=== PATIENT | female | born 1965 | race African-American/Black ===

== ENCOUNTER 2016-06-04 19:52 | Emergency (ER) | payer MEDICAID, SELFPAY ==
[2016-06-04] MEDS ORDERED: HYDROcodone/Acetaminophen 10/325 mg Tablet ONE (20:11)
[2016-06-04] MEDS ORDERED: Lidocaine Viscous Sol 2% 15 ml UD Cup ONE (20:12)
[2016-06-04] MEDS ORDERED: Ibuprofen 800 MG TAB ONE (20:12)
[2016-06-04] MEDS ORDERED: Clindamycin 150 MG CAP ONE (20:12)
--- NOTE | 2016-06-04 20:38 | ERRECORD ---
[facility] EMERGENCY RECORD HPI TOOTHACHE (20:16 ABUS) CHIEF COMPLAINT: Patient presents for evaluation of toothache. HISTORIAN: History provided by patient, 50 yr old with PMH of DM and HF who come sin with reports of left lower molar pain x 1 day. No F, N/V, rash. No broken tooth. LOCATION: Symptoms are localized, most severe to Tooth #38. QUALITY: Pain is dull in nature, described as aching. SEVERITY: Currently symptoms are severe, Current severity of pain rated as 10/10. TIME COURSE: Gradual onset of symptoms, 1, days priror to arrival, There has been no change in the patient's symptoms over time, are constant. ASSOCIATED WITH: No associated symptoms. EXACERBATED BY: Patient's condition exacerbated by nothing. RELIEVED BY: Patient's condition relieved by nothing. ROS (20:17 ABUS) CONSTITUTIONAL: Negative constitutional review of systems, Historian denies chills, denies fever. ENT: Tooth pain. CARDIOVASCULAR: Negative cardiovascular review of systems, Historian denies chest pain, denies palpitations. RESPIRATORY: Negative respiratory review of systems, Historian denies cough, denies shortness of breath. GI: Negative gastrointestinal review of systems, Historian denies abdominal pain, denies constipation, denies diarrhea, denies nausea, denies vomiting. GENITOURINARY FEMALE: Negative genitourinary review of systems, Historian denies dysuria, denies frequency. SKIN: Negative skin review of systems, Historian denies rash, denies skin changes. NEUROLOGIC: Negative neurologic review of systems, Historian denies headache. HEMO/LYMPHATIC: Normal hematologic/lymphatic system review, Historian denies abnormal blood clotting. PAST MEDICAL HISTORY (SatJun 04, 2016 20:00 MDEB) MEDICAL HISTORY: Flu vaccine not up to date, Tetanus not up to date, Pneumococcal vaccine not up to date, diabetes, history of hypertension, IBD.VERIFIED 05/09/14...chronic back pain. FEMALE SURGICAL HISTORY: tubal ligation, Date of surgery 1987. VERIFIED 05/09/14. verified 09/01/14. PSYCHIATRIC HISTORY: DEPRESSION, BIPOLAR DISORDER, ANXIETY. VERIFIED 05/09/14.verified 09/01/14. SOCIAL HISTORY: Patient denies alcohol use, Patient denies drug use, Patient has no smoking history, Patient denies alcohol use, Patient denies drug use, Patient currently uses tobacco, smokes cigarettes, Occasional or some day smoker, Patient denies alcohol use, Patient denies drug use,. &a-1R&a+25V*p+0X*s2124P*c202B*c15G*c2P*p-0X&a-25V&a+1R Name: Dulce Maria Patel : 1965 F50 MedRec: [id number] AcctNum: [id number] Prepared: SatJun 04, 2016 20:30 by Interface Page 1 of 3 pMD [facility] EMERGENCY RECORD KNOWN ALLERGIES No Known Allergies (Unconfirmed) No Known Drug Allergies CURRENT MEDICATIONS No recorded medications VITAL SIGNS (19:58 MDEB) VITAL SIGNS: BP: 117/62, Pulse: 99, Resp: 20, Temp: 98.4 (Tympanic), Pain: 10, O2 sat: 99 on Room Air, Time: 06/04/2016 19:58. PHYSICAL EXAM (20:17 ABUS) CONSTITUTIONAL: Vital signs reviewed, Patient afebrile, Pulse normal, Blood pressure normal, Respiratory rate normal, Patient appears non toxic, Patient appears pain free, Patient alert and oriented to person, place and time. ENT: Ear exam normal, external ear normal, tympanic membranes normal, Nose exam normal, no nasal deformity, no bleeding from nares, Pharynx exam normal, not injected, no swelling, symmetrical, Uvula exam normal, midline, no edema, Tonsil exam normal, not enlarged, no exudates, Mouth exam normal, mucous membranes moist, Teeth with, dental caries, fractures, tooth #38. NECK: Neck exam normal, Neck exam included findings of normal range of motion, Trachea midline, no meningeal signs, no cervical adenopathy, no tenderness. RESPIRATORY CHEST: Respiratory and chest exam normal, Respiratory exam included findings of no respiratory distress, Breath sounds clear. CARDIOVASCULAR: Cardiovascular assessment normal, Cardiovascular exam included findings of heart rate regular rate and rhythm, Heart sounds normal. ABDOMEN FEMALE: Abdominal exam included findings of abdomen nontender, Bowel sounds normal, no distension, no mass, no pulsatile masses, no peritoneal signs, no rigidity, no guarding, no rebound, Rovsing's sign absent. BACK: Back exam normal, Back exam included findings of normal inspection, range of motion normal, no tenderness. NEURO: Neuro exam normal, Neuro exam findings include patient oriented to person, place and time, Speech normal, Gait normal. SKIN: Skin exam normal, Skin exam included findings of skin warm, dry, and normal in color, no rash. MEDICATION ADMINISTRATION SUMMARY Drug Name: ibuprofen, Dose Ordered: 800 mg, Route: Oral, Status: Given, Time: 20:20 06/04/2016, Drug Name: Lidocaine Viscous, Dose Ordered: 15 mL, Route: Oral, Status: Given, Time: 20:20 06/04/2016, &a-1R&a+25V*p+0X*f0692Q*c202B*c15G*c2P*p-0X&a-25V&a+1R Name: Dulce Maria Patel : 1965 F50 MedRec: [id number] AcctNum: [id number] Prepared: SatJun 04, 2016 20:30 by Interface Page 2 of 3 pMD [facility] EMERGENCY RECORD Drug Name: HYDROcodone-acetaminophen, Dose Ordered: 10/325 tab(s), Route: Oral, Status: Given, Time: 20:19 06/04/2016, Drug Name: clindamycin HCl, Dose Ordered: 300 mg, Route: Oral, Status: Given, Time: 20:15 06/04/2016, Detailed record available in Medication Service section. DOCTOR NOTES (20:18 ABUS) TEXT: 50 yr old with PMH of DM and HF who come sin with reports of left lower molar pain x 1 day. No F, N/V, rash. No broken tooth. EXAM: Tooth #38 has dental cavity with swlling but no fluctuance or purulent drainage. Dx: Dental cavity, gingivitis Plan: Analgesia, clinda, return precautions, dental referral. PROBLEM LIST No recorded problems DIAGNOSIS (20:15 ABUS) FINAL: PRIMARY: Toothache. PRESCRIPTION (20:15 ABUS) Peridex: MOUTHWASH : 0.12 % : MUCOUS MEMBRANE : Quantity: 15 Unit: mL Route: MUCOUS MEMBRANE Schedule: 2 times a day Dispense: 1 May substitute. Refills: No Refills . NOTES: No Refills. acetaminophen-codeine: TABLET : 300 mg-30 mg : ORAL : Quantity: 1 Unit: tab(s) Route: ORAL Schedule: every 6 hours PRN Dispense: 16 Unit: tab(s) May substitute. Refills: No Refills . NOTES: ^s=No Refills No Refills. clindamycin HCl: CAPSULE : 300 mg : ORAL : Quantity: 1 Unit: cap(s) Route: ORAL Schedule: 3 times a day Dispense: 21 Unit: cap(s) May substitute. Refills: No Refills . NOTES: ^s=^s=No Refills No Refills No Refills. DISPOSITION PATIENT: Disposition Type: Discharge, Disposition: *Discharge Home, Condition: Good. (20:15 ABUS) Patient left the department. (20:27 ESTEFANY) Gordon: AB=MD Rohit, Nicola HAWKINSEB=LINDA Quintanilla, Teressa &a-1R&a+25V*p+0X*[id number]*c202B*c15G*c2P*p-0X&a-25V&a+1R Name: Dulce Maria Patel : 1965 F50 MedRec: [id number] AcctNum: [id number] Prepared: SatJun 04, 2016 20:30 by Interface Page 3 of 3 pMD MTDD
--- NOTE | 2016-06-04 20:41 | PICIS ---
[facility] EMERGENCY RECORD TRIAGE (SatJun 04, 2016 20:00 MDEB) PATIENT: NAME: Dulce Maria Patel, AGE: 50, GENDER: female, : Sat1965, TIME OF GREET: SatJun 04, 2016 19:52, PREFERRED LANGUAGE: Belarusian, RACE: Black or , ETHNICITY: Not or , FALL RISK: NO, ECODE BILLING MAP: [facility], SSN: [id number], Zip Code: [address], KG WEIGHT: 91.63, PHONE: CELL, , , PERSON ID: [id number], PCP: MD Quiñonez Olayemi. (SatJun 04, 2016 20:00 MDEB) TRIAGE NOTES: DENTAL PAIN SINCE 18:00 TONIGHT. L UPPER ET L LOWER MOLARS. L EAR ALSO PAINFUL. (SatJun 04, 2016 20:00 MDEB) COMPLAINT: TOOTH ACHE. (SatJun 04, 2016 20:00 MDEB) ADMISSION: URGENCY: 4 Non Urgent, ADMISSION SOURCE: Home, TRANSPORT: Walk-in, BED: TRIAGE. (SatJun 04, 2016 20:00 MDEB) PAIN: Patient complains of pain described as, aching, on a scale 0-10 patient rates pain as 10. (SatJun 04, 2016 20:00 MDEB) IMMUNIZATIONS: Tetanus immunization up to date. (SatJun 04, 2016 20:00 MDEB) TRIAGE SCREENING: Patient denies suicidal ideation, Patient denies presence of domestic violence. (SatJun 04, 2016 20:00 MDEB) LMP: LMP: Menopause. (SatJun 04, 2016 20:00 MDEB) PROVIDERS: TRIAGE NURSE: Teressa Quintanilla RN. (SatJun 04, 2016 20:00 MDEB) VITAL SIGNS: BP 117/62, Pulse 99, Resp 20, Temp 98.4, (Tympanic), Pain 10, O2 Sat 99, on Room Air, Time 06/04/2016 19:58. (19:58 MDEB) KNOWN ALLERGIES No Known Allergies (Unconfirmed) No Known Drug Allergies CURRENT MEDICATIONS No recorded medications VITAL SIGNS (19:58 MDEB) VITAL SIGNS: BP: 117/62, Pulse: 99, Resp: 20, Temp: 98.4 (Tympanic), Pain: 10, O2 sat: 99 on Room Air, Time: 06/04/2016 19:58. NURSING ASSESSMENT: DENTAL (20:00 MDEB) CONSTITUTIONAL: Patient arrives ambulatory, Gait steady, History obtained from patient, Patient appears, anxious, in distress due to pain, uncomfortable, Patient cooperative, Patient alert, Oriented to person, place and time, Skin warm, Skin dry, Skin normal in color, Mucous membranes pink, Mucous membranes moist, Patient is well-groomed, Patient complains of UPPER ET LOWER L SIDE MOLAR PAIN. PAIN: aching pain, on a scale 0-10 patient rates pain as 10, Pain exacerbated by nothing, Nothing has been tried to alleviate the pain. DENTAL: Dental assessment findings include mouth normal, &a-1R&a+25V*p+0X*r5753J*c202B*c15G*c2P*p-0X&a-25V&a+1R Name: Dulce Maria Patel : 1965 F50 MedRec: [id number] AcctNum: [id number] Prepared: SatJun 04, 2016 20:30 by Interface Page 1 of 6 pMD [facility] EMERGENCY RECORD Teeth abnormal:, broken secondary tooth (teeth), signs of infection to secondary tooth (teeth), color change to secondary tooth (teeth), missing secondary tooth (teeth), Associated with, GUMS SWOLLEN TO L UPPER MOLAR. SAFETY: Side rails up, Cart/Stretcher in lowest position, Family at bedside, Call light within reach, Hospital ID band on. NURSING PROCEDURE: DISCHARGE NOTE (20:25 MDEB) DISCHARGE: Patient discharged to home, ambulating without assistance, friend driving, accompanied by friend, Summary of Care printed/ provided, Patient requested and was provided an electronic copy of Discharge Instructions, Transition record given to patient, Discharge instructions given to patient, Simple or moderate discharge teaching performed, PAIN CONTROL/MEDICATIONS, Prescriptions given and instructions on side effects given, Above person(s) verbalized understanding of discharge instructions and follow-up care. BELONGINGS: Belongings remain with patient, Valuables remain with patient. NOTES: Emotional support needed and given, Patient tolerated procedure well. MEDICATION ADMINISTRATION SUMMARY Drug Name: ibuprofen, Dose Ordered: 800 mg, Route: Oral, Status: Given, Time: 20:20 06/04/2016, Drug Name: Lidocaine Viscous, Dose Ordered: 15 mL, Route: Oral, Status: Given, Time: 20:20 06/04/2016, Drug Name: HYDROcodone-acetaminophen, Dose Ordered: 10/325 tab(s), Route: Oral, Status: Given, Time: 20:19 06/04/2016, Drug Name: clindamycin HCl, Dose Ordered: 300 mg, Route: Oral, Status: Given, Time: 20:15 06/04/2016, Detailed record available in Medication Service section. MEDICATION SERVICE clindamycin HCl: Order: clindamycin HCl - Dose: 300 mg : Oral Schedule: Now Ordered by: Nicola Banegas MD Entered by: Nicola Banegas MD SatJun 04, 2016 20:12 , Acknowledged by: Teressa Quintanilla RN SatJun 04, 2016 20:13 Documented as given by: Teressa Quintanilla RN SatJun 04, 2016 20:15 Patient, Medication, Dose, Route and Time verified prior to administration. Amount given: 300 MG, Site: Medication administered P.O., Correct patient, time, route, dose and medication confirmed prior to administration, Patient advised of actions and side-effects prior to administration, Allergies confirmed and medications reviewed prior to administration, Patient in position of comfort, Side rails up, Cart &a-1R&a+25V*p+0X*q1304X*c202B*c15G*c2P*p-0X&a-25V&a+1R Name: Dulce Maria Patel : 1965 F50 MedRec: [id number] AcctNum: [id number] Prepared: SatJun 04, 2016 20:30 by Interface Page 2 of 6 pMD [facility] EMERGENCY RECORD in lowest position, Family at bedside. HYDROcodone-acetaminophen: Order: HYDROcodone-acetaminophen (hydrocodone bitartrate/acetaminophen) - Dose: 10325 tab(s) : Oral Schedule: Now Ordered by: Nicola Banegas MD Entered by: Nicola Banegas MD SatJun 04, 2016 20:11 , Acknowledged by: Teressa Quintanilla RN SatJun 04, 2016 20:13 Documented as given by: Teressa Quintanilla RN SatJun 04, 2016 20:19 Patient, Medication, Dose, Route and Time verified prior to administration. Amount given: 10/325 MG, Site: Medication administered P.O., Correct patient, time, route, dose and medication confirmed prior to administration, Patient advised of actions and side-effects prior to administration, Allergies confirmed and medications reviewed prior to administration, Patient in position of comfort, Side rails up, Cart in lowest position, Family at bedside. ibuprofen: Order: ibuprofen - Dose: 800 mg : Oral Schedule: Now Ordered by: Nicola Banegas MD Entered by: Nicola Banegas MD SatJun 04, 2016 20:11 , Acknowledged by: Teressa Quintanilla RN SatJun 04, 2016 20:14 Documented as given by: Teressa Quintanilla RN SatJun 04, 2016 20:20 Patient, Medication, Dose, Route and Time verified prior to administration. Amount given: 800 MG, Site: Medication administered P.O., Correct patient, time, route, dose and medication confirmed prior to administration, Patient advised of actions and side-effects prior to administration, Allergies confirmed and medications reviewed prior to administration, Patient in position of comfort, Side rails up, Cart in lowest position, Family at bedside. Lidocaine Viscous: Order: Lidocaine Viscous (lidocaine HCl) - Dose: 15 mL : Oral Schedule: Now Ordered by: Nicola Banegas MD Entered by: Nicola Banegas MD SatJun 04, 2016 20:13 , Acknowledged by: Teressa Quintanilla RN SatJun 04, 2016 20:14 Documented as given by: Teressa Quintanilla RN SatJun 04, 2016 20:20 Patient, Medication, Dose, Route and Time verified prior to administration. Amount given: 15 ML, Site: Medication administered buccal, Correct patient, time, route, dose and medication confirmed prior to administration, Patient advised of actions and side-effects prior to administration, Allergies confirmed and medications reviewed prior to administration, Administered by DR BANEGAS, Patient in position of comfort, Cart in lowest position. HPI TOOTHACHE (20:16 ABUS) CHIEF COMPLAINT: Patient presents for evaluation of toothache. HISTORIAN: History provided by patient, &a-1R&a+25V*p+0X*y6555K*c202B*c15G*c2P*p-0X&a-25V&a+1R Name: Dulce Maria Patel : 1965 F50 MedRec: [id number] AcctNum: [id number] Prepared: SatJun 04, 2016 20:30 by Interface Page 3 of 6 pMD [facility] EMERGENCY RECORD 50 yr old with PMH of DM and HF who come sin with reports of left lower molar pain x 1 day. No F, N/V, rash. No broken tooth. LOCATION: Symptoms are localized, most severe to Tooth #38. QUALITY: Pain is dull in nature, described as aching. SEVERITY: Currently symptoms are severe, Current severity of pain rated as 10/10. TIME COURSE: Gradual onset of symptoms, 1, days priror to arrival, There has been no change in the patient's symptoms over time, are constant. ASSOCIATED WITH: No associated symptoms. EXACERBATED BY: Patient's condition exacerbated by nothing. RELIEVED BY: Patient's condition relieved by nothing. ROS (20:17 ABUS) CONSTITUTIONAL: Negative constitutional review of systems, Historian denies chills, denies fever. ENT: Tooth pain. CARDIOVASCULAR: Negative cardiovascular review of systems, Historian denies chest pain, denies palpitations. RESPIRATORY: Negative respiratory review of systems, Historian denies cough, denies shortness of breath. GI: Negative gastrointestinal review of systems, Historian denies abdominal pain, denies constipation, denies diarrhea, denies nausea, denies vomiting. GENITOURINARY FEMALE: Negative genitourinary review of systems, Historian denies dysuria, denies frequency. SKIN: Negative skin review of systems, Historian denies rash, denies skin changes. NEUROLOGIC: Negative neurologic review of systems, Historian denies headache. HEMO/LYMPHATIC: Normal hematologic/lymphatic system review, Historian denies abnormal blood clotting. PAST MEDICAL HISTORY (SatJun 04, 2016 20:00 MDEB) MEDICAL HISTORY: Flu vaccine not up to date, Tetanus not up to date, Pneumococcal vaccine not up to date, diabetes, history of hypertension, IBD.VERIFIED 05/09/14...chronic back pain. FEMALE SURGICAL HISTORY: tubal ligation, Date of surgery 1987. VERIFIED 05/09/14. verified 09/01/14. PSYCHIATRIC HISTORY: DEPRESSION, BIPOLAR DISORDER, ANXIETY. VERIFIED 05/09/14.verified 09/01/14. SOCIAL HISTORY: Patient denies alcohol use, Patient denies drug use, Patient has no smoking history, Patient denies alcohol use, Patient denies drug use, Patient currently uses tobacco, smokes cigarettes, Occasional or some day smoker, Patient denies alcohol use, Patient denies drug use,. PHYSICAL EXAM (20:17 ABUS) CONSTITUTIONAL: Vital signs reviewed, Patient afebrile, Pulse &a-1R&a+25V*p+0X*x3366H*c202B*c15G*c2P*p-0X&a-25V&a+1R Name: Dulce Maria Patel : 1965 F50 MedRec: [id number] AcctNum: [id number] Prepared: SatJun 04, 2016 20:30 by Interface Page 4 of 6 pMD [facility] EMERGENCY RECORD normal, Blood pressure normal, Respiratory rate normal, Patient appears non toxic, Patient appears pain free, Patient alert and oriented to person, place and time. ENT: Ear exam normal, external ear normal, tympanic membranes normal, Nose exam normal, no nasal deformity, no bleeding from nares, Pharynx exam normal, not injected, no swelling, symmetrical, Uvula exam normal, midline, no edema, Tonsil exam normal, not enlarged, no exudates, Mouth exam normal, mucous membranes moist, Teeth with, dental caries, fractures, tooth #38. NECK: Neck exam normal, Neck exam included findings of normal range of motion, Trachea midline, no meningeal signs, no cervical adenopathy, no tenderness. RESPIRATORY CHEST: Respiratory and chest exam normal, Respiratory exam included findings of no respiratory distress, Breath sounds clear. CARDIOVASCULAR: Cardiovascular assessment normal, Cardiovascular exam included findings of heart rate regular rate and rhythm, Heart sounds normal. ABDOMEN FEMALE: Abdominal exam included findings of abdomen nontender, Bowel sounds normal, no distension, no mass, no pulsatile masses, no peritoneal signs, no rigidity, no guarding, no rebound, Rovsing's sign absent. BACK: Back exam normal, Back exam included findings of normal inspection, range of motion normal, no tenderness. NEURO: Neuro exam normal, Neuro exam findings include patient oriented to person, place and time, Speech normal, Gait normal. SKIN: Skin exam normal, Skin exam included findings of skin warm, dry, and normal in color, no rash. EVENTS TRANSFER: Triage to Emergency Triage. (20:00 MDEB) Emergency Triage to Main ED -. (20:00 MDEB) Removed from Emergency Main ED -01. (20:27 MDEB) DOCTOR NOTES (20:18 ABUS) TEXT: 50 yr old with PMH of DM and HF who come sin with reports of left lower molar pain x 1 day. No F, N/V, rash. No broken tooth. EXAM: Tooth #38 has dental cavity with swlling but no fluctuance or purulent drainage. Dx: Dental cavity, gingivitis Plan: Analgesia, clinda, return precautions, dental referral. PROBLEM LIST No recorded problems DIAGNOSIS (20:15 ABUS) FINAL: PRIMARY: Toothache. &a-1R&a+25V*p+0X*t9234Y*c202B*c15G*c2P*p-0X&a-25V&a+1R Name: Dulce Maria Patel : 1965 F50 MedRec: [id number] AcctNum: [id number] Prepared: SatJun 04, 2016 20:30 by Interface Page 5 of 6 pMD [facility] EMERGENCY RECORD DISPOSITION PATIENT: Disposition Type: Discharge, Disposition: *Discharge Home, Condition: Good. (20:15 ABUS) Patient left the department. (20:27 MDEB) INSTRUCTION (20:16 ABUS) DISCHARGE: TOOTH PAIN. FOLLOWUP: MD Olamide, [facility], [facility], [address] [place] [address], . SPECIAL: As discussed in the ED, please keep any upcoming appointments with your primary doctor or call the referral provided to you today to establish a follow up evaluation or ongoing medical care. Please come back if you start to have fever, vomiting, swelling, or any symptoms that concern you. PRESCRIPTION (20:15 ABUS) Peridex: MOUTHWASH : 0.12 % : MUCOUS MEMBRANE : Quantity: 15 Unit: mL Route: MUCOUS MEMBRANE Schedule: 2 times a day Dispense: 1 May substitute. Refills: No Refills . NOTES: No Refills. acetaminophen-codeine: TABLET : 300 mg-30 mg : ORAL : Quantity: 1 Unit: tab(s) Route: ORAL Schedule: every 6 hours PRN Dispense: 16 Unit: tab(s) May substitute. Refills: No Refills . NOTES: ^s=No Refills No Refills. clindamycin HCl: CAPSULE : 300 mg : ORAL : Quantity: 1 Unit: cap(s) Route: ORAL Schedule: 3 times a day Dispense: 21 Unit: cap(s) May substitute. Refills: No Refills . NOTES: ^s=^s=No Refills No Refills No Refills. IMAGING (20:27 ESTEFANY) *DISCHARGE INSTRUCTIONS RECEIPT: Image captured from scanner. *SUPPLY CHARGE SHEET: Image captured from scanner. ADMIN (20:20 MARI) DIGITAL SIGNATURE: MD Banegas Anthony. Gordon: MARI=MD Banegas Anthony MDEB=LINDA Quintanilla, Teressa &a-1R&a+25V*p+0X*b5845I*c202B*c15G*c2P*p-0X&a-25V&a+1R Name: Dulce Maria Patel : 1965 F50 MedRec: [id number] AcctNum: [id number] Prepared: SatJun 04, 2016 20:30 by Interface Page 6 of 6 pMD MTDD
== END 2016-06-04 20:25 | disposition home or self-care (01) ==
LOC: MADERS 19:52
DX: K08.89 Other specified disorders of teeth and supporting structures (principal); E11.9 Type 2 diabetes mellitus without complications; I10 Essential (primary) hypertension; F31.9 Bipolar disorder, unspecified; F41.9 Anxiety disorder, unspecified; F17.210 Nicotine dependence, cigarettes, uncomplicated; Z98.51 Tubal ligation status
CPT/HCPCS: 99282

== ENCOUNTER 2016-08-11 20:04 | Emergency (ER) | payer SELFPAY ==
[2016-08-11] MEDS ORDERED: HYDROcodone/Acetaminophen 10/325 mg Tablet ONE (20:36)
--- NOTE | 2016-08-11 20:51 | RAD ---
LEFT FOOT THREE VIEWS 08/11/16 HISTORY: Left foot pain. FINDINGS: Lisfranc joint alignment is anatomic. Plantar arch is maintained. Mild osteophytosis is present. No acute fracture, dislocation or aggressive osseous erosions are apparent. IMPRESSION: No acute osseous abnormalities are demonstrated. POS: ELENI
== END 2016-08-11 21:00 | disposition home or self-care (01) ==
LOC: MADERS 20:04
DX: S93.602A Unspecified sprain of left foot, initial encounter (principal); E11.9 Type 2 diabetes mellitus without complications; I10 Essential (primary) hypertension; F31.9 Bipolar disorder, unspecified; F41.9 Anxiety disorder, unspecified; Z79.82 Long term (current) use of aspirin; Z79.84 Long term (current) use of oral hypoglycemic drugs; Z79.899 Other long term (current) drug therapy; X58.XXXA Exposure to other specified factors, initial encounter

== ENCOUNTER 2016-09-11 18:53 | Emergency (ER) | payer SELFPAY ==
[2016-09-11] MEDS ORDERED: Acetaminophen/Codeine 30-300mg Tablet ONE (20:46)
== END 2016-09-11 20:55 | disposition home or self-care (01) ==
LOC: MADERS 18:53
DX: M19.011 Primary osteoarthritis, right shoulder (principal); F31.9 Bipolar disorder, unspecified; F41.9 Anxiety disorder, unspecified; E11.9 Type 2 diabetes mellitus without complications; I10 Essential (primary) hypertension; Z79.84 Long term (current) use of oral hypoglycemic drugs; Z79.82 Long term (current) use of aspirin; Z79.899 Other long term (current) drug therapy
CPT/HCPCS: 99283

== ENCOUNTER 2016-10-18 14:12 | Emergency (ER) | payer SELFPAY ==
[2016-10-18 14:53] LABS: Bilirubin Negative (Negative); Blood, Urine Moderate (Negative); Clarity Hazy (Clear); Glucose, Urine (Dipstick) Negative (Negative); Leukocyte Negative (Negative); Nitrite Negative (Negative); Protein, Urine (Dipstick) Negative (Neg-Trace); Specific Gravity, Urine 1.015 (1.005-1.030); Urobilinogen 0.2 mg/dL (0.2-1.0)
[2016-10-18 14:54] LABS: RBC/HPF GREATER THAN 50-TNTC HPF (0-3); Squamous Epithelial 0-3 HPF (0-3); WBC/HPF None Seen HPF (0-3)
[2016-10-18 14:55] LABS: Bacteria/HPF None Seen HPF (None Seen)
[2016-10-18] MEDS ORDERED: diphenhydrAMINE HCl 50 MG/ML 1 ML VIAL ONE (15:27)
--- NOTE | 2016-10-18 16:25 | CT ---
CT ABDOMEN AND PELVIS STONE PROTOCOL 10/18/16 HISTORY: Right lower quadrant and right lower back pain since yesterday. No trauma. COMPARISON: Stone protocol CT 10/23/11. FINDINGS: The lung bases are clear. No significant pericardial effusion. No nephroureterolithiasis, hydrourete ronephrosis. No secondary evidence of recently passed stone. Incidental note is made of a splenule. Very small amount of fluid within the pelvis. There are multiple pedunculated partially calcified ma sses incompletely evaluated. Noncontrast limits evaluation of the liver. Gallbladder and adrenals glands are unremarkable. Mild a therosclerotic plaque of the aortoiliac system without aneurysmal dilatation. The skeleton is unremarkable. Appendix is visualized in its entirety and is normal. No dilated loops of large or small bowel. Mild diverticular disease sigmoid colon without active inflammation. IMPRESSION: 1. No nephroureterolithiasis or hydroureteronephrosis. 2. No secondary evidence of recently passed stone. 3. Normal appendix. 4. Multiple partially calcified masses of the uterus are likely pedunculated and sessile leiomy omas. There could be some torsion/detorsion involving a fibroid as there is small volume free fluid in the pelvis. Further evaluation with ultrasound is recommended. Degenerating fibroids is also with in the differential. POS: MED
== END 2016-10-18 17:00 | disposition home or self-care (01) ==
LOC: MADERS 14:12
DX: N20.1 Calculus of ureter (principal); N85.8 Other specified noninflammatory disorders of uterus; E11.9 Type 2 diabetes mellitus without complications; I10 Essential (primary) hypertension; F31.9 Bipolar disorder, unspecified; F41.9 Anxiety disorder, unspecified; Z79.82 Long term (current) use of aspirin; Z79.899 Other long term (current) drug therapy; Z79.84 Long term (current) use of oral hypoglycemic drugs
CPT/HCPCS: 74176; 81003; 81015; 94760; 96374; 96375; J1200; J2270

== ENCOUNTER 2016-11-14 17:22 | Emergency (ER) | payer SELFPAY ==
[2016-11-14] MEDS ORDERED: Ondansetron ODT 4 MG TAB ONE (18:26)
== END 2016-11-14 18:55 | disposition home or self-care (01) ==
LOC: MADERS 17:22
DX: M54.41 Lumbago with sciatica, right side (principal); I11.0 Hypertensive heart disease with heart failure; I50.9 Heart failure, unspecified; E11.9 Type 2 diabetes mellitus without complications; F31.9 Bipolar disorder, unspecified; F41.9 Anxiety disorder, unspecified; Z79.84 Long term (current) use of oral hypoglycemic drugs; Z79.82 Long term (current) use of aspirin; Z79.899 Other long term (current) drug therapy
CPT/HCPCS: 96372; J2270; Q0162

== ENCOUNTER 2016-11-17 09:28 | Emergency (ER) | payer SELFPAY ==
[2016-11-17] MEDS ORDERED: Dextrose 50% Abboject 50 ML SYRINGE ONE (09:38)
[2016-11-17 09:51] LABS: #Basophils 0.1 thou/uL (0.0-0.2); #Eosinphils 0.2 thou/uL (0.0-0.7); #Lymphocytes 3.6 thou/uL (1.20-3.40); #Monocytes 0.3 thou/uL (0.11-0.59); #Neutrophils 4.3 thou/uL (1.40-6.50); %Basophils 0.6 % (0.0-1.0); %Eosinophils 2.6 % (0.0-10.0); %Lymphocytes 42.2 % (21.0-51.0); %Monocytes 3.7 % (0.0-10.0); %Neutrophils 50.9 % (42.0-75.0); Hemoglobin 11.5 g/dL (12.0-16.0); Mean Corpuscular HGB CONC 31.4 g/dL (32.0-36.0); Mean Corpuscular Hemoglobin 26.9 pg (27.0-31.0); Mean Corpuscular Volume 85.7 fl (81.0-99.0); Mean Platelet Volume 7.1 fL (7.4-10.4); Platelet Count 229 thou/uL (130-400); RBC Distribution Width 14.1 % (11.5-14.5); Red Blood Cell (RBC) Count 4.29 mill/uL (4.20-5.40); White Blood Cell (WBC) Count 8.5 thou/uL (4.8-10.8)
[2016-11-17 09:52] LABS: INR-International Normal Ratio 0.9; PTT 24.7 SEC (22.9-36.1); Prothrombin Time 12.9 SEC (12.0-14.7)
[2016-11-17 10:01] LABS: ALT (SGPT) 8 U/L (8-55); AST (SGOT) 13 U/L (5-34); Albumin 3.8 g/dL (3.5-5.0); Alkaline Phosphatase 86 U/L (40-150); Anion Gap 16 mmol/L (10-20); BUN (Urea Nitrogen) 11 mg/dL (9.8-20.1); Bilirubin, Total Less than 0.3 mg/dL (0.2-1.2); Calc. Creatinine Clearance 0 mL/min (70-130); Carbon Dioxide 22 mmol/L (22-29); Chloride 106 mmol/L (98-107); Estimated GFR-MDRD 77; Potassium 3.9 mmol/L (3.5-5.1); Protein, Total 7.8 g/dL (6.0-8.3); Sodium 140 mmol/L (136-145)
[2016-11-17 10:07] LABS: CKMB 0.8 ng/mL (0-6.6); Troponin I 0.019 ng/mL (< 0.028)
[2016-11-17 10:11] LABS: Glucose 48 mg/dL (70-105)
--- NOTE | 2016-11-17 10:25 | CT ---
NONCONTRAST CT BRAIN INDICATIONS: Stroke alert. COMPARISON: MRI brain dated 07/30/[address] brain dated 07/01/2012. FINDINGS: There has been interval development of encephalomalacia involving the cortical and subcortical white matter of the right parotid lobe, in the region of the previously seen right MCA distribution infar ct. No acute infarct, hemorrhage, or hydrocephalus is present. The septum pellucidum and third shruthi tricle are midline. The mastoid air cells and paranasal sinuses are clear. The skull is intact. IMPRESSION: 1. No acute intracranial abnormality. 2. 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 The findings were called to Dr. Bee at 9:48 a.m. on 11/17/2016. CODE CR POS: RYLAND
== END 2016-11-17 14:28 | disposition home or self-care (01) ==
LOC: MADERS 09:28
DX: E11.649 Type 2 diabetes mellitus with hypoglycemia without coma (principal); I11.0 Hypertensive heart disease with heart failure; I50.9 Heart failure, unspecified; F31.9 Bipolar disorder, unspecified; F41.9 Anxiety disorder, unspecified
CPT/HCPCS: 36416; 70450; 80053; 82553; 84484; 85025; 85610; 85730; 93005; 96374; 96375; 36415-59; J1610

== ENCOUNTER 2017-01-03 14:26 | Emergency (ER) | payer SELFPAY ==
[2017-01-03] MEDS ORDERED: HYDROcodone/Acetaminophen 10/325 mg Tablet ONE (16:30)
[2017-01-03] MEDS ORDERED: Naproxen 500 MG TAB ONE (16:30)
[2017-01-03] MEDS ORDERED: Oxymetazoline HCl 0.05% ( 15 ML ) ONE (16:30)
[2017-01-03] MEDS ORDERED: Amoxicillin/Potassium Clav 500 MG TAB ONE (16:30)
== END 2017-01-03 16:35 | disposition home or self-care (01) ==
LOC: MADERS 14:26
DX: J01.90 Acute sinusitis, unspecified (principal); I11.0 Hypertensive heart disease with heart failure; I50.9 Heart failure, unspecified; E11.9 Type 2 diabetes mellitus without complications; F31.9 Bipolar disorder, unspecified; K58.9 Irritable bowel syndrome, unspecified; F41.9 Anxiety disorder, unspecified
CPT/HCPCS: 99283

== ENCOUNTER 2017-04-24 14:57 | Emergency (ER) | payer SELFPAY | END 2017-04-24 15:20 | disposition home or self-care (01) | LOC: MADERS 14:57 | DX: S29.012A Strain of muscle and tendon of back wall of thorax, initial encounter (principal); J06.9 Acute upper respiratory infection, unspecified; E11.9 Type 2 diabetes mellitus without complications; F31.9 Bipolar disorder, unspecified; F41.9 Anxiety disorder, unspecified; I11.0 Hypertensive heart disease with heart failure; I50.9 Heart failure, unspecified; K58.9 Irritable bowel syndrome, unspecified; Z79.82 Long term (current) use of aspirin; Z79.84 Long term (current) use of oral hypoglycemic drugs; Z79.899 Other long term (current) drug therapy | CPT/HCPCS: 99283 ==

== ENCOUNTER 2017-05-27 15:01 | Emergency (ER) | payer SELFPAY ==
[2017-05-27] MEDS ORDERED: Ondansetron ODT 4 MG TAB ONE (16:01)
[2017-05-27] MEDS ORDERED: Oseltamivir 75 MG CAP ONE (16:29)
[2017-05-27] MEDS ORDERED: HYDROcodone/Acetaminophen 10/325 mg Tablet ONE (16:29)
== END 2017-05-27 16:35 | disposition home or self-care (01) ==
LOC: MADERS 15:01
DX: J11.1 Influenza due to unidentified influenza virus with other respiratory manifestations (principal); E11.9 Type 2 diabetes mellitus without complications; I11.0 Hypertensive heart disease with heart failure; I50.9 Heart failure, unspecified; G89.29 Other chronic pain; F31.9 Bipolar disorder, unspecified; F41.9 Anxiety disorder, unspecified; F17.210 Nicotine dependence, cigarettes, uncomplicated; Z79.82 Long term (current) use of aspirin; Z79.899 Other long term (current) drug therapy; Z79.84 Long term (current) use of oral hypoglycemic drugs
CPT/HCPCS: 99283; Q0162

== ENCOUNTER 2017-07-29 20:15 | Emergency (ER) | payer MEDICARE, MEDICAID ==
[2017-07-29] MEDS ORDERED: traMADol HCl 50 MG TAB ONE (21:48)
[2017-07-29] MEDS ORDERED: AMOXicillin 250 MG CAP ONE (21:49)
== END 2017-07-29 21:50 | disposition home or self-care (01) ==
LOC: MADERS 20:15
DX: J02.9 Acute pharyngitis, unspecified (principal); E11.9 Type 2 diabetes mellitus without complications; I11.0 Hypertensive heart disease with heart failure; I50.9 Heart failure, unspecified; F41.9 Anxiety disorder, unspecified; F32.9 Major depressive disorder, single episode, unspecified; Z79.82 Long term (current) use of aspirin; Z79.899 Other long term (current) drug therapy; Z79.84 Long term (current) use of oral hypoglycemic drugs
CPT/HCPCS: 87430; 99283

== ENCOUNTER 2017-09-06 16:37 | Emergency (ER) | payer MEDICARE, MEDICAID ==
[2017-09-06] MEDS ORDERED: HYDROcodone/Acetaminophen 10/325 mg Tablet ONE (16:51)
[2017-09-06] MEDS ORDERED: Ciprofloxacin 500 MG TAB ONE (16:52)
== END 2017-09-06 16:59 | disposition home or self-care (01) ==
LOC: MADERS 16:37
DX: K02.9 Dental caries, unspecified (principal); I11.0 Hypertensive heart disease with heart failure; I50.9 Heart failure, unspecified; E11.9 Type 2 diabetes mellitus without complications; F41.9 Anxiety disorder, unspecified; F31.9 Bipolar disorder, unspecified; F17.210 Nicotine dependence, cigarettes, uncomplicated; Z79.82 Long term (current) use of aspirin; Z79.84 Long term (current) use of oral hypoglycemic drugs; Z79.02 Long term (current) use of antithrombotics/antiplatelets; Z79.899 Other long term (current) drug therapy
CPT/HCPCS: 99282

== ENCOUNTER 2017-11-12 19:12 | Emergency (ER) | payer MEDICARE, MEDICAID ==
[2017-11-12] MEDS ORDERED: AMOXicillin 250 MG CAP ONE (19:33)
[2017-11-12] MEDS ORDERED: Acetaminophen 325 MG TAB ONE (19:33)
[2017-11-12] MEDS ORDERED: HYDROcodone/Acetaminophen 5/325 mg Tablet ONE (19:33)
== END 2017-11-12 19:46 | disposition home or self-care (01) ==
LOC: MADERS 19:12
DX: K02.9 Dental caries, unspecified (principal); I11.0 Hypertensive heart disease with heart failure; I50.9 Heart failure, unspecified; E11.9 Type 2 diabetes mellitus without complications; F41.9 Anxiety disorder, unspecified; F31.9 Bipolar disorder, unspecified; F17.210 Nicotine dependence, cigarettes, uncomplicated; Z79.84 Long term (current) use of oral hypoglycemic drugs; Z79.82 Long term (current) use of aspirin; Z79.899 Other long term (current) drug therapy
CPT/HCPCS: 99282

== ENCOUNTER 2017-12-30 10:52 | Outpatient (CLI) | payer MEDICARE, MEDICAID ==
--- NOTE | 2017-12-30 13:04 | RAD ---
LUMBAR SPINE MRI: 12/30/2017 HISTORY: Low back pain with sciatica. COMPARISON: 09/21/2014 FINDINGS: Five lumbar type vertebral bodies are present. The pedicles appear intact on frontal imaging. There is L2-L3 lateral left-sided osteophyte formation. There is right lateral osteophyte formation at L3 -L4. There is bilateral L4-L5 and L5-S1 facet hypertrophy, right greater than left. Lateral examination demonstrates minimal retrolisthesis of L3 on L4, measuring 2-3 mm, and minimal an terolisthesis of L4 on L5, measuring approximately 2-3 mm. There is mild disk space narrowing and anterior osteophyte formation at L3-L4. Facet hypertrophy is most prominent on the right at L4-L5. No acute fracture or evidence of dislocation. IMPRESSION: Multilevel degenerative changes noted within the lumbar spine, as detailed above. POS: [facility]
[2017-12-30 13:58] LABS: #Basophils 0.1 thou/uL (0.0-0.2); #Eosinphils 0.3 thou/uL (0.0-0.7); #Lymphocytes 3.2 thou/uL (1.20-3.40); #Monocytes 0.4 thou/uL (0.11-0.59); #Neutrophils 3.7 thou/uL (1.40-6.50); %Basophils 1.1 % (0.0-1.0); %Eosinophils 4.2 % (0.0-10.0); %Lymphocytes 41.7 % (21.0-51.0); %Monocytes 5.2 % (0.0-10.0); %Neutrophils 47.9 % (42.0-75.0); Hemoglobin 11.4 g/dL (12.0-16.0); Mean Corpuscular Hemoglobin 26.2 pg (27.0-31.0); Mean Corpuscular Volume 84.6 fL (78.0-98.0); Mean Platelet Volume 6.6 fL (7.4-10.4); Platelet Count 241 thou/uL (130-400); RBC Distribution Width 13.6 % (11.5-14.5); Red Blood Cell (RBC) Count 4.33 mill/uL (4.20-5.40); White Blood Cell (WBC) Count 7.7 thou/uL (4.8-10.8)
[2017-12-30 14:20] LABS: ALT (SGPT) 25 U/L (8-55); AST (SGOT) 24 U/L (5-34); Alkaline Phosphatase 111 U/L (40-150); Anion Gap 13 mmol/L (10-20); BUN (Urea Nitrogen) 14 mg/dL (9.8-20.1); Bilirubin, Total 0.3 mg/dL (0.2-1.2); Calc. Creatinine Clearance 0 mL/min (70-130); Calcium 9.2 mg/dL (7.8-10.44); Carbon Dioxide 24 mmol/L (22-29); Cardiac Risk 2.9 (Less than 4.5); Chloride 106 mmol/L (98-107); Cholesterol 131 mg/dl (< 200 Desired); Estimated GFR-MDRD 62; Globulin 3.6 g/dL (2.4-3.5); Glucose 136 mg/dL (70-105); HDL Cholesterol 45 mg/dL (>60 Neg Risk); LDL Cholesterol, Calculated 74 mg/dL; Potassium 4.5 mmol/L (3.5-5.1); Protein, Total 7.6 g/dL (6.0-8.3); Sodium 138 mmol/L (136-145); Triglycerides 61 mg/dL (Less than 150)
[2017-12-30 17:03] LABS: Hemoglobin A1c 6.9 % (4.0-6.0)
== END 2017-12-30 10:53 | disposition home or self-care (01) ==
LOC: MADLAB 10:52
PROVIDERS: ATTEND Family Medicine
DX: M54.41 Lumbago with sciatica, right side (principal); M47.896 Other spondylosis, lumbar region; E11.9 Type 2 diabetes mellitus without complications; E78.2 Mixed hyperlipidemia; I10 Essential (primary) hypertension; F41.8 Other specified anxiety disorders
CPT/HCPCS: 36415; 72100; 80053; 80061; 83036; 85025

== ENCOUNTER 2018-02-18 09:56 | Emergency (ER) | payer MEDICAID, MEDICARE | END 2018-02-18 10:30 | disposition home or self-care (01) | LOC: MADERS 09:56 | DX: M25.531 Pain in right wrist (principal); Z79.82 Long term (current) use of aspirin; Z79.84 Long term (current) use of oral hypoglycemic drugs; Z79.899 Other long term (current) drug therapy; Z79.891 Long term (current) use of opiate analgesic | CPT/HCPCS: 99281 ==

== ENCOUNTER 2018-02-19 11:04 | Outpatient (CLI) | payer MEDICARE, MEDICAID ==
--- NOTE | 2018-02-19 14:09 | RAD ---
RIGHT WRIST THREE VIEW: 02/19/18 HISTORY: Pain. COMPARISON: None. FINDINGS: There are advanced degenerative changes of the distal radioulnar joint. Positive ulnar variance as w ell as subcortical cyst of the medial margin of the lunate. No acute fracture or malalignment. Low gr lluvia narrowing of the radial carpal joint at the radioscaphoid articulation. IMPRESSION: Degenerative changes of the wrist with positive ulnar variance creating ulnocarpal abutment syndrome. POS: [facility]
== END 2018-02-19 11:05 | disposition home or self-care (01) ==
LOC: MADRAD 11:04
PROVIDERS: ATTEND Family Medicine
DX: M25.531 Pain in right wrist (principal); M19.031 Primary osteoarthritis, right wrist; M25.831 Other specified joint disorders, right wrist

== ENCOUNTER 2018-07-17 12:53 | Emergency (ER) | payer MEDICARE, MEDICAID ==
[2018-07-17] MEDS ORDERED: Morphine 10 MG/ML VIAL ONE ×2 (13:16→15:04)
[2018-07-17 16:33] LABS: #Basophils 0.1 thou/uL (0.0-0.2); #Eosinphils 0.3 thou/uL (0.0-0.7); #Lymphocytes 3.2 thou/uL (1.20-3.40); #Monocytes 0.4 thou/uL (0.11-0.59); #Neutrophils 4.1 thou/uL (1.40-6.50); %Basophils 0.7 % (0.0-1.0); %Lymphocytes 39.7 % (21.0-51.0); %Monocytes 5.4 % (0.0-10.0); %Neutrophils 50.2 % (42.0-75.0); Hemoglobin 9.8 g/dL (12.0-16.0); Mean Corpuscular HGB CONC 30.4 g/dL (32.0-36.0); Mean Corpuscular Volume 85.3 fL (78.0-98.0); Mean Platelet Volume 5.2 fL (7.4-10.4); Platelet Count 246 thou/uL (130-400); RBC Distribution Width 14.4 % (11.5-14.5); Red Blood Cell (RBC) Count 3.77 mill/uL (4.20-5.40); White Blood Cell (WBC) Count 8.1 thou/uL (4.8-10.8)
[2018-07-17] MEDS ORDERED: Morphine 4 MG/ML VIAL ONE (16:45)
[2018-07-17] MEDS ORDERED: Acetaminophen 500 MG TAB ONE (16:45)
[2018-07-17 16:51] LABS: ALT (SGPT) 20 U/L (8-55); AST (SGOT) 18 U/L (5-34); Albumin 4.1 g/dL (3.5-5.0); Alkaline Phosphatase 123 U/L (40-150); Anion Gap 15 mmol/L (10-20); BUN (Urea Nitrogen) 17 mg/dL (9.8-20.1); Bilirubin, Total Less than 0.2 mg/dL (0.2-1.2); CK (CPK) 41 U/L (29-168); Calc. Creatinine Clearance 0 mL/min (70-130); Calcium 9.5 mg/dL (7.8-10.44); Carbon Dioxide 25 mmol/L (22-29); Chloride 105 mmol/L (98-107); Estimated GFR-MDRD 66; Glucose 113 mg/dL (70-105); Potassium 4.5 mmol/L (3.5-5.1); Protein, Total 8.1 g/dL (6.0-8.3); Sodium 140 mmol/L (136-145)
[2018-07-17 17:23] LABS: Bilirubin Negative (Negative); Blood, Urine Negative (Negative); Clarity Clear (Clear); Glucose, Urine (Dipstick) Negative (Negative); Leukocyte Trace (Negative); Nitrite Negative (Negative); Protein, Urine (Dipstick) Negative (Neg-Trace); Urobilinogen 0.2 mg/dL (0.2-1.0)
[2018-07-17 17:25] LABS: Specific Gravity, Urine 1.008 (1.002-1.036)
[2018-07-17 17:32] LABS: Bacteria/HPF Rare-Few HPF (None Seen); RBC/HPF None Seen HPF (0-3); Squamous Epithelial 0-3 HPF (0-3); WBC/HPF 0-3 HPF (0-3)
== END 2018-07-17 18:05 | disposition home or self-care (01) ==
LOC: MADERS 12:53
DX: M54.41 Lumbago with sciatica, right side (principal); E11.9 Type 2 diabetes mellitus without complications; K21.9 Gastro-esophageal reflux disease without esophagitis; E78.5 Hyperlipidemia, unspecified; I10 Essential (primary) hypertension; G47.00 Insomnia, unspecified; Z79.899 Other long term (current) drug therapy; Z79.84 Long term (current) use of oral hypoglycemic drugs; Z79.891 Long term (current) use of opiate analgesic; Z79.82 Long term (current) use of aspirin
CPT/HCPCS: 36415; 80053; 81003; 81015; 82550; 85025; 85652; 96372; 96374; J2270

== ENCOUNTER 2018-09-06 12:03 | Emergency (ER) | payer MEDICAID, MEDICARE ==
[2018-09-06] MEDS ORDERED: Oxymetazoline HCl 0.05% ( 15 ML ) ONE (12:19)
[2018-09-06] MEDS ORDERED: Acetaminophen 500 MG TAB ONE (13:33)
[2018-09-06] MEDS ORDERED: HYDROcodone/Acetaminophen 5/325 mg Tablet ONE (14:13)
== END 2018-09-06 14:25 | disposition home or self-care (01) ==
LOC: MADERS 12:03
DX: R04.0 Epistaxis (principal); G47.00 Insomnia, unspecified; E11.9 Type 2 diabetes mellitus without complications; K21.9 Gastro-esophageal reflux disease without esophagitis; E78.5 Hyperlipidemia, unspecified; I10 Essential (primary) hypertension; F41.9 Anxiety disorder, unspecified; Z79.891 Long term (current) use of opiate analgesic; Z79.84 Long term (current) use of oral hypoglycemic drugs; Z79.82 Long term (current) use of aspirin; Z79.899 Other long term (current) drug therapy
CPT/HCPCS: 99283

== ENCOUNTER 2018-09-07 19:06 | Emergency (ER) | payer MEDICARE ==
[2018-09-07] MEDS ORDERED: Acetaminophen/Codeine 30-300mg Tablet ONE (19:59)
[2018-09-07] MEDS ORDERED: Triple Antibiotic Oint 1 GM Packet ONE (21:52)
== END 2018-09-07 20:20 | disposition home or self-care (01) ==
LOC: MADERS 19:06
DX: R04.0 Epistaxis (principal); G47.30 Sleep apnea, unspecified; E11.9 Type 2 diabetes mellitus without complications; K21.9 Gastro-esophageal reflux disease without esophagitis; E78.5 Hyperlipidemia, unspecified; I10 Essential (primary) hypertension; F41.9 Anxiety disorder, unspecified; F32.9 Major depressive disorder, single episode, unspecified; Z79.899 Other long term (current) drug therapy; Z79.84 Long term (current) use of oral hypoglycemic drugs; Z79.82 Long term (current) use of aspirin
CPT/HCPCS: 30901

== ENCOUNTER 2018-11-25 08:55 | Outpatient (CLI) | payer MEDICARE ==
--- NOTE | 2018-11-25 10:25 | ULT ---
THYROID ULTRASOUND: HISTORY: Visible puffiness in the anterior lower neck. COMPARISON: None. TECHNIQUE: Sagittal and transverse imaging of the thyroid gland is performed. FINDINGS: The thyroid isthmus measures approximately 2 cm. The right thyroid lobe measures 5.2 x 2.2 x 2.4 cm. The left thyroid lobe measures 3.1 x 3.1 x 5.1 cm. Overall, there is a diffuse heterogeneous echotexture throughout the thyroid gland. In the left thyr oid lobe, there is an ill-defined, solid, isoechoic textured nodule, measuring 1.4 x 2.0 x 1.2 cm. There is a solid/cystic nodule in the mid portion, right thyroid lobe, measuring 0.9 x 0.8 cm. The c ystic component measures 0.5 cm. A second smaller anechoic focus in the right thyroid lobe measures 0.5 cm as well. IMPRESSION: 1. Diffuse heterogeneity and thyromegaly. 2. Solid nodule in the left thyroid lobe with TI-RADS calculated at TR3. Follow-up imaging in one y ear is recommended. POS: [facility]
== END 2018-11-25 08:56 | disposition home or self-care (01) ==
LOC: MADULT 08:55
PROVIDERS: ATTEND Family Medicine
DX: R22.1 Localized swelling, mass and lump, neck (principal); E04.1 Nontoxic single thyroid nodule
CPT/HCPCS: 76536

== ENCOUNTER 2019-03-20 07:53 | Emergency (ER) | payer MEDICARE, MEDICAID ==
[2019-03-20] MEDS ORDERED: Aspirin Chewable 81 MG TAB ONE (08:37)
[2019-03-20] MEDS ORDERED: Nitroglycerin 0.4 MG TAB 1 EACH ONE (08:37)
[2019-03-20 08:38] LABS: White Blood Cell (WBC) Count 6.3 thou/uL (4.8-10.8)
[2019-03-20 08:39] LABS: Hemoglobin 9.5 g/dL (12.0-16.0); Mean Corpuscular HGB CONC 29.4 g/dL (32.0-36.0); Mean Corpuscular Hemoglobin 25.6 pg (27.0-31.0); RBC Distribution Width 16.7 % (11.5-14.5); Red Blood Cell (RBC) Count 3.71 mill/uL (4.20-5.40)
[2019-03-20 08:40] LABS: #Eosinphils 0.2 thou/uL (0.0-0.7); #Monocytes 0.4 thou/uL (0.11-0.59); #Neutrophils 3.3 thou/uL (1.40-6.50); %Basophils 0.8 % (0.0-1.0); %Eosinophils 2.6 % (0.0-10.0); %Lymphocytes 37.4 % (21.0-51.0); %Monocytes 6.8 % (0.0-10.0); %Neutrophils 52.4 % (42.0-75.0); Manual Diff?? NO; Mean Platelet Volume 6.6 fL (7.4-10.4); Platelet Count 180 thou/uL (130-400)
[2019-03-20 08:41] LABS: #Basophils 0.1 thou/uL (0.0-0.2); MDiff Complete? YES
[2019-03-20 08:53] LABS: ALT (SGPT) 13 U/L (8-55); AST (SGOT) 16 U/L (5-34); Albumin 3.8 g/dL (3.5-5.0); Alkaline Phosphatase 92 U/L (40-110); Anion Gap 15 mmol/L (10-20); BUN (Urea Nitrogen) 12 mg/dL (9.8-20.1); Bilirubin, Total 0.3 mg/dL (0.2-1.2); Calc. Creatinine Clearance 0 mL/min (70-130); Calcium 9.1 mg/dL (7.8-10.44); Carbon Dioxide 20 mmol/L (22-29); Chloride 109 mmol/L (98-107); Estimated GFR-MDRD 65; Glucose 113 mg/dL (70-105); Potassium 3.9 mmol/L (3.5-5.1); Sodium 140 mmol/L (136-145)
[2019-03-20 08:55] LABS: Globulin 3.3 g/dL (2.4-3.5); Protein, Total 7.1 g/dL (6.0-8.3)
--- NOTE | 2019-03-20 09:14 | RAD ---
PORTABLE CHEST 1 VIEW: Date: 03/20/19 Time: 0836 hours HISTORY: Chest pain. FINDINGS: The heart size is borderline. The lungs are well expanded without focal areas of consolidation, pneum othoraces, cassy pulmonary edema, or pleural effusions. IMPRESSION: No acute process. POS: OFF
[2019-03-20] MEDS ORDERED: Acetaminophen 500 MG TAB ONE (09:55)
== END 2019-03-20 10:05 | disposition short-term general hospital (02) ==
LOC: MADERS 07:53
DX: R07.9 Chest pain, unspecified (principal); I10 Essential (primary) hypertension; E11.9 Type 2 diabetes mellitus without complications; K21.9 Gastro-esophageal reflux disease without esophagitis; E78.5 Hyperlipidemia, unspecified; E78.00 Pure hypercholesterolemia, unspecified; F41.9 Anxiety disorder, unspecified; G47.00 Insomnia, unspecified; F32.9 Major depressive disorder, single episode, unspecified; Z79.82 Long term (current) use of aspirin; Z79.84 Long term (current) use of oral hypoglycemic drugs; Z79.899 Other long term (current) drug therapy; Z79.01 Long term (current) use of anticoagulants
CPT/HCPCS: 36415; 71045; 80053; 83880; 84484; 85025; 93005; 94760

== ENCOUNTER 2019-06-18 12:47 | Emergency (ER) | payer MEDICARE, MEDICAID | END 2019-06-18 14:04 | disposition home or self-care (01) | LOC: MADERS 12:47 | DX: J11.1 Influenza due to unidentified influenza virus with other respiratory manifestations (principal); E11.9 Type 2 diabetes mellitus without complications; K21.9 Gastro-esophageal reflux disease without esophagitis; E78.5 Hyperlipidemia, unspecified; I10 Essential (primary) hypertension; F41.9 Anxiety disorder, unspecified; F32.9 Major depressive disorder, single episode, unspecified; Z79.82 Long term (current) use of aspirin; Z79.899 Other long term (current) drug therapy; Z79.84 Long term (current) use of oral hypoglycemic drugs | CPT/HCPCS: 87804; 99283 ==

== ENCOUNTER 2019-11-23 15:47 | Emergency (ER) | payer MEDICARE, MEDICAID ==
[~2019-11-23 15:47] MED LIST: Iopamidol 370 76% 100 ML VIAL ONE; Sodium Chloride 0.9% 1,000 ML BAG ONE
[2019-11-23 16:16] LABS: Bilirubin Negative (Negative); Blood, Urine Negative (Negative); Clarity Clear (Clear); Glucose, Urine (Dipstick) Negative (Negative); Ketone, Urine Trace mg/dL (Negative); Leukocyte Negative (Negative); Nitrite Negative (Negative); Protein, Urine (Dipstick) Negative (Neg-Trace); Urobilinogen 0.2 mg/dL (Less than 2)
[2019-11-23] MEDS ORDERED: Morphine 4 MG/ML VIAL ONE ×2 (16:39→18:54)
--- NOTE | 2019-11-23 16:42 | CT ---
ABDOMEN AND PELVIC CT SCAN WITHOUT IV CONTRAST: History: Right sided pain, dysuria, CVA, pain. Comparison: 10-18-16 FINDINGS: The lung bases are clear. The visualized liver, gallbladder, pancreas, and spleen are unremarkable. T he right adrenal gland has a slightly nodular appearance but appears to be stable from 10-18-16. There is no renal calculus or acute obstruction. No CT evidence for acute appendicitis. Post op pedicle screw placement changes at L5, L4, and L3 with intradiscal prosthesis at L3-4. Multiple calcified kami rine fibroids. No evidence for mass, abscess, adenopathy, or significant abnormal fluid collection. IMPRESSION: No renal calculus or acute obstruction. Multiple calcified uterine fibroids. Slightly nodular appe aring right adrenal gland but stable from prior study. No significant acute process. POS: [facility]
[2019-11-23 17:02] LABS: ALT (SGPT) 11 U/L (8-55); AST (SGOT) 12 U/L (5-34); Alkaline Phosphatase 94 U/L (40-110); Anion Gap 17 mmol/L (10-20); BUN (Urea Nitrogen) 16 mg/dL (9.8-20.1); Bilirubin, Total 0.2 mg/dL (0.2-1.2); Calc. Creatinine Clearance 0 mL/min (70-130); Carbon Dioxide 22 mmol/L (22-29); Chloride 107 mmol/L (98-107); Estimated GFR-MDRD 58; Globulin 3.5 g/dL (2.4-3.5); Glucose 98 mg/dL (70-105); Potassium 4.3 mmol/L (3.5-5.1); Protein, Total 7.5 g/dL (6.0-8.3); Sodium 142 mmol/L (136-145)
[2019-11-23] MEDS ORDERED: Morphine 2 MG/ML SYRINGE ONE (17:24)
--- NOTE | 2019-11-23 20:23 | CT ---
CT ABDOMEN WITH CONTRAST CT PELVIS WITH CONTRAST: DATE: 11-23-2019 TIME: 7:36 P.M. HISTORY: 53-year-old female with right sided abdominal pain and dysuria. COMPARISON: Noncontrast CT of 11-23-2019, 4:23 p.m. (less than 3 hours earlier today). TECHNIQUE: IV injection of iodinated contrast media: Administered Oral contrast media: Not administered FINDINGS: There is a new finding of tiny right pleural effusion and another new finding of mild ground glass ch anges broadly abutting the posterior pleural surfaces bilaterally at the posterior costophrenic angle s. This is favored to represent mild, early dependent atelectasis. The appendix, urinary bladder, bilateral kidneys, adrenals, pancreas, liver, and spleen are normal. No abdominal aortic aneurysm. No small bowel dilatation. Small amount of free fluid in the cul-de-sac. Calcified uterine fibroids. Numerous diverticula throughout sigmoid colon and descending colon without signs of acute diverticuli tis. No pneumoperitoneum or small bowel dilatation. Unilateral right pedicle screws at L3, L4, and L5 of the lumbar spine. No intercal change in abdomen and pelvis. IMPRESSION: 1. No acute intraabdominal or intrapelvic findings. 2. Nonspecific mild new changes at lung bases. ALONSO Moreno POS: [facility]
== END 2019-11-23 21:36 | disposition short-term general hospital (02) ==
LOC: MADERS 15:47
DX: K85.90 Acute pancreatitis without necrosis or infection, unspecified (principal); J98.11 Atelectasis; D25.9 Leiomyoma of uterus, unspecified; R30.0 Dysuria; K21.9 Gastro-esophageal reflux disease without esophagitis; E78.5 Hyperlipidemia, unspecified; E78.00 Pure hypercholesterolemia, unspecified; I12.9 Hypertensive chronic kidney disease with stage 1 through stage 4 chronic kidney disease, or unspecified chronic kidney disease; E11.22 Type 2 diabetes mellitus with diabetic chronic kidney disease; N18.9 Chronic kidney disease, unspecified; Z79.82 Long term (current) use of aspirin; Z79.84 Long term (current) use of oral hypoglycemic drugs; Z79.02 Long term (current) use of antithrombotics/antiplatelets; Z79.899 Other long term (current) drug therapy
CPT/HCPCS: 74176; 74177; 80053; 81003; 83605; 83690; 87077; 87086; 96361; 96374; 96376; J2270; J7050; Q9967

== ENCOUNTER 2019-12-11 10:52 | Outpatient (CLI) | payer MEDICARE, MEDICAID ==
--- NOTE | 2019-12-11 12:05 | ULT ---
US Thyroid STANDARD: 12/11/2019 11:25 AM CLINICAL INDICATION: Multinodular thyroid. COMPARISON: None. FINDINGS: The right thyroid lobe measures 5.0 cm and the left thyroid lobe measures 5.4cm. Multiple bilateral thyroid nodules are present. The nodule on the right measures 2.3 cm in greatest dimension, is well-circumscribed, isoechoic and w ider than tall. Multiple nodules are seen on the left. The largest measures 2.6 cm in size, is well-circumscribed and isoechoic. None of the nodules contain suspicious microcalcifications. No cervical lymphadenopathy is noted. IMPRESSION: The nodular thyroid TIRADS category 3 -a follow-up ultrasound is recommended to ensure stability.
== END 2019-12-11 10:53 | disposition home or self-care (01) ==
LOC: MADULT 10:52
PROVIDERS: ATTEND Family Medicine
DX: E04.2 Nontoxic multinodular goiter (principal)
CPT/HCPCS: 76536

== ENCOUNTER 2019-12-15 08:42 | Outpatient (CLI) | payer MEDICARE, MEDICAID ==
--- NOTE | 2019-12-15 09:05 | RAD ---
EXAM: 3 views of the lumbosacral spine HISTORY: Spondylolisthesis COMPARISON: 10/20/2019 FINDINGS: 3 views of the lumbosacral spine shows normal height and alignment of the vertebral bodies and intervertebral discs without fracture or subluxation. The patient is status post posterior fusion of L3-L5 with right-sided pedicle screws. A disc spacer is seen in the L3/4 disc space. No per ihardware lucency is seen. Small osteophytes are seen at L2/3. Posterior facet arthrosis is seen in the lower lumbosacral spine. The sacroiliac joints are unremarkable. IMPRESSION: Degenerative and postsurgical changes of the lumbar spine as above
== END 2019-12-15 08:43 | disposition home or self-care (01) ==
LOC: MADRAD 08:42
PROVIDERS: ATTEND Transplant Surgery
DX: M43.16 Spondylolisthesis, lumbar region (principal); M47.816 Spondylosis without myelopathy or radiculopathy, lumbar region; Z98.890 Other specified postprocedural states
CPT/HCPCS: 72100

== ENCOUNTER 2020-02-19 09:09 | Outpatient (CLI) | payer MEDICARE, MEDICAID ==
--- NOTE | 2020-02-19 09:25 | RAD ---
XR Knee Rt 4 View STANDARD HISTORY: Fall, right knee pain FINDINGS: No fracture or dislocation is identified. No joint effusion is seen.
== END 2020-02-19 09:10 | disposition home or self-care (01) ==
LOC: MADRAD 09:09
PROVIDERS: ATTEND Family Medicine
DX: M25.561 Pain in right knee (principal); R23.8 Other skin changes

== ENCOUNTER 2020-04-03 14:43 | Emergency (ER) | payer MEDICARE, MEDICAID ==
[2020-04-03] MEDS ORDERED: Benzonatate 100 MG CAP ONE (15:42)
[2020-04-03] MEDS ORDERED: HYDROcodone/Acetaminophen 5/325 mg Tablet ONE (15:42)
--- NOTE | 2020-04-03 15:47 | RAD ---
EXAM: Chest PA and lateral: HISTORY: Cough. COVID 19 symptoms. COMPARISON: 04/25/2015 FINDINGS: Heart: Normal cardiac silhouette Aorta: Unremarkable Pulmonary vessels: Normal Costophrenic angles: Costophrenic angles are clear. Lungs: No consolidation or masses. Pneumothorax: No pneumothorax Osseous structures: No osseous abnormalities IMPRESSION: No acute cardiopulmonary process.
[2020-04-04 15:08] LABS: SARS-CoV-2 MS2 Positive; SARS-CoV-2 N Gene Negative; SARS-CoV-2 S Gene Negative; SARS-CoV-2 by NAA Not Detected (NotDetected); SARS-CoV-2 orf1ab Negative
== END 2020-04-03 17:40 | disposition home or self-care (01) ==
LOC: MADERS 14:43
DX: R05 Cough (principal); R51.9 Headache, unspecified; R19.7 Diarrhea, unspecified; R53.1 Weakness; Z20.828 Contact with and (suspected) exposure to other viral communicable diseases; E11.9 Type 2 diabetes mellitus without complications; K21.9 Gastro-esophageal reflux disease without esophagitis; F41.9 Anxiety disorder, unspecified; F32.9 Major depressive disorder, single episode, unspecified; I12.9 Hypertensive chronic kidney disease with stage 1 through stage 4 chronic kidney disease, or unspecified chronic kidney disease; N18.9 Chronic kidney disease, unspecified; G47.30 Sleep apnea, unspecified; G47.00 Insomnia, unspecified; E78.5 Hyperlipidemia, unspecified; E78.00 Pure hypercholesterolemia, unspecified; Z79.899 Other long term (current) drug therapy; Z79.84 Long term (current) use of oral hypoglycemic drugs; Z79.82 Long term (current) use of aspirin
CPT/HCPCS: 71046; 87635; 87804; U0003

== ENCOUNTER 2020-04-07 16:26 | Emergency (ER) | payer MEDICARE, MEDICAID ==
--- NOTE | 2020-04-07 17:35 | RAD ---
TWO VIEW CHEST: 04/07/20 HISTORY: Chest pain and cough. FINDINGS/IMPRESSION: Lungs are clear of infiltrate. Heart and mediastinum unremarkable. No acute lung process identified. POS: [facility]
[2020-04-07 18:05] LABS: #Basophils 0.1 thou/uL (0.0-0.2); #Eosinphils 0.1 thou/uL (0.0-0.7); #Lymphocytes 1.8 thou/uL (1.20-3.40); #Monocytes 0.3 thou/uL (0.11-0.59); #Neutrophils 6.3 thou/uL (1.40-6.50); %Basophils 0.9 % (0.0-1.0); %Eosinophils 1.6 % (0.0-10.0); %Lymphocytes 21.2 % (21.0-51.0); %Monocytes 3.8 % (0.0-10.0); %Neutrophils 72.5 % (42.0-75.0); Hemoglobin 10.4 g/dL (12.0-16.0); Mean Corpuscular HGB CONC 30.5 g/dL (32.0-36.0); Mean Corpuscular Hemoglobin 27.6 pg (27.0-31.0); Mean Corpuscular Volume 90.6 fL (78.0-98.0); Mean Platelet Volume 6.5 fL (7.4-10.4); Platelet Count 168 thou/uL (130-400); RBC Distribution Width 14.1 % (11.5-14.5); Red Blood Cell (RBC) Count 3.75 mill/uL (4.20-5.40); White Blood Cell (WBC) Count 8.6 thou/uL (4.8-10.8)
[2020-04-07 18:17] LABS: ALT (SGPT) 9 U/L (8-55); AST (SGOT) 9 U/L (5-34); Albumin 3.8 g/dL (3.5-5.0); Alkaline Phosphatase 108 U/L (40-110); Anion Gap 17 mmol/L (10-20); BUN (Urea Nitrogen) 16 mg/dL (9.8-20.1); Bilirubin, Total Less than 0.2 mg/dL (0.2-1.2); Calc. Creatinine Clearance 0 mL/min (70-130); Calcium 8.6 mg/dL (7.8-10.44); Carbon Dioxide 24 mmol/L (22-29); Chloride 101 mmol/L (98-107); Estimated GFR-MDRD 61; Globulin 3.4 g/dL (2.4-3.5); Glucose 290 mg/dL (70-105); Lipase 44 U/L (8-78); Potassium 4.2 mmol/L (3.5-5.1); Protein, Total 7.2 g/dL (6.0-8.3); Sodium 138 mmol/L (136-145)
[2020-04-08 16:30] LABS: SARS-CoV-2 MS2 Positive; SARS-CoV-2 N Gene Negative; SARS-CoV-2 S Gene Negative; SARS-CoV-2 by NAA Not Detected (NotDetected); SARS-CoV-2 orf1ab Negative
== END 2020-04-07 19:00 | disposition home or self-care (01) ==
LOC: MADERS 16:26
DX: R07.9 Chest pain, unspecified (principal); M54.6 Pain in thoracic spine; R51.9 Headache, unspecified; R05 Cough; Z20.828 Contact with and (suspected) exposure to other viral communicable diseases; E11.9 Type 2 diabetes mellitus without complications; K21.9 Gastro-esophageal reflux disease without esophagitis; E78.5 Hyperlipidemia, unspecified; E78.00 Pure hypercholesterolemia, unspecified; G47.30 Sleep apnea, unspecified; I12.9 Hypertensive chronic kidney disease with stage 1 through stage 4 chronic kidney disease, or unspecified chronic kidney disease; N18.9 Chronic kidney disease, unspecified; F41.9 Anxiety disorder, unspecified; F32.9 Major depressive disorder, single episode, unspecified; G47.00 Insomnia, unspecified; Z79.82 Long term (current) use of aspirin; Z79.84 Long term (current) use of oral hypoglycemic drugs; Z79.899 Other long term (current) drug therapy
CPT/HCPCS: 71046; 80053; 83605; 83690; 83880; 84484; 85025; 85379; 93005; U0003; 87635

== ENCOUNTER 2020-05-03 11:24 | Outpatient (CLI) | payer MEDICARE, MEDICAID ==
--- NOTE | 2020-05-03 11:43 | RAD ---
EXAM: XR Lumbar Spine 2 Or 3 View PROVIDED CLINICAL HISTORY: Low back pain. History of prior surgery. COMPARISON: 12/15/2019 FINDINGS: Again noted are postoperative changes lumbar spine. Unilateral right-sided pedicular screws in the L3 , L4, and L5 vertebral bodies with interlocking josefina are again seen. No hardware complication is appreciated. Intradiscal prosthesis at the L3-4 level is present. Scattered osteophytes are seen in t he lumbar spine. The vertebral body heights are within normal limits. No fracture or subluxation is identified. Mild left convex curvature of thoracolumbar spine is present. Calcifications are again seen in the right hemipelvis related to a calcified uterine fibroid which wa s seen on CT abdomen on 11/23/2019. IMPRESSION: Stable postoperative and degenerative changes lumbar spine.
== END 2020-05-03 11:25 | disposition home or self-care (01) ==
LOC: MADRAD 11:24
PROVIDERS: ATTEND Neurological Surgery
DX: M54.5 Low back pain (principal); M47.816 Spondylosis without myelopathy or radiculopathy, lumbar region; Z98.890 Other specified postprocedural states
CPT/HCPCS: 72100

== ENCOUNTER 2020-06-01 08:32 | Outpatient (CLI) | payer MEDICARE, MEDICAID ==
[2020-06-01 09:14] LABS: ALT (SGPT) 14 U/L (8-55); AST (SGOT) 16 U/L (5-34); Alkaline Phosphatase 90 U/L (40-110); Anion Gap 13 mmol/L (10-20); BUN (Urea Nitrogen) 17 mg/dL (9.8-20.1); Bilirubin, Total 0.2 mg/dL (0.2-1.2); Calc. Creatinine Clearance 0 mL/min (70-130); Calcium 9.1 mg/dL (7.8-10.44); Carbon Dioxide 25 mmol/L (22-29); Cardiac Risk 2.3 (Less than 4.5); Chloride 106 mmol/L (98-107); Cholesterol 117 mg/dl (< 200 Desired); Globulin 3.2 g/dL (2.4-3.5); Glucose 123 mg/dL (70-105); HDL Cholesterol 52 mg/dL (>60 Neg Risk); LDL Cholesterol, Calculated 54 mg/dL; Potassium 4.1 mmol/L (3.5-5.1); Protein, Total 7.2 g/dL (6.0-8.3); Sodium 140 mmol/L (136-145); Triglycerides 53 mg/dL (Less than 150)
== END 2020-06-01 08:33 | disposition home or self-care (01) ==
LOC: MADLAB 08:32
PROVIDERS: ATTEND Internal Medicine Cardiovascular Disease
DX: I25.10 Atherosclerotic heart disease of native coronary artery without angina pectoris (principal); E78.00 Pure hypercholesterolemia, unspecified
CPT/HCPCS: 36415; 80053; 80061

== ENCOUNTER 2020-06-14 08:03 | Outpatient (CLI) | payer MEDICARE, MEDICAID ==
--- NOTE | 2020-06-14 08:56 | ULT ---
Thyroid ultrasound: 06/14/2020 COMPARISON: 12/11/2019 and 11/25/2018 History: Bilateral thyroid enlargement TECHNIQUE: Multiplanar grayscale sonographic imaging of the thyroid gland provided. FINDINGS: There is a markedly enlarged and heterogeneous thyroid gland noted, the thyroid isthmus raymon suring 1.6 cm in AP dimension, the right lobe measuring 5.0 x 2.0 x 2.5 cm, and the left lobe measuring 5.4 x 3.0 x 3.1 cm. There are stable solid thyroid nodules present, including a nodule measuring up to 2.3 cm on the righ t and 3 solid nodules measuring up to 2.5 cm on the left. There is been no appreciable change when compared to studies dating back to 11/25/2018. IMPRESSION: Enlarged heterogeneous multinodular thyroid gland,TI-RADS 3. Recommend one-year follow-up .
== END 2020-06-14 08:04 | disposition home or self-care (01) ==
LOC: MADULT 08:03
PROVIDERS: ATTEND Family Medicine
DX: E04.2 Nontoxic multinodular goiter (principal)
CPT/HCPCS: 76536

== ENCOUNTER 2020-07-12 13:17 | Emergency (ER) | payer MEDICARE, MEDICAID ==
[2020-07-12] MEDS ORDERED: Dexamethasone 10 MG/ML VIAL ONE (15:10)
[2020-07-12] MEDS ORDERED: Prochlorperazine 10 MG/2 ML VIAL ONE (15:10)
[2020-07-13 05:21] LABS: SARS-CoV-2 PCR by NAA Not Detected (NotDetected)
== END 2020-07-12 15:40 | disposition home or self-care (01) ==
LOC: MADERS 13:17
DX: J02.9 Acute pharyngitis, unspecified (principal); Z20.822 Contact with and (suspected) exposure to COVID-19; E11.9 Type 2 diabetes mellitus without complications; K21.9 Gastro-esophageal reflux disease without esophagitis; E78.00 Pure hypercholesterolemia, unspecified; I10 Essential (primary) hypertension; G47.00 Insomnia, unspecified; Z79.82 Long term (current) use of aspirin; Z79.84 Long term (current) use of oral hypoglycemic drugs; Z79.899 Other long term (current) drug therapy
CPT/HCPCS: 87635; 87804; 96372; 99284; J0780; J1100; U0003; U0005

== ENCOUNTER 2020-08-20 20:24 | Emergency (ER) | payer MEDICARE, MEDICAID ==
[2020-08-20] MEDS ORDERED: Bupivacaine PF 0.5% 30 ML VIAL ONE (20:45)
[2020-08-20] MEDS ORDERED: Penicillin V Potassium 250 MG TAB ONE (21:10)
[2020-08-20] MEDS ORDERED: Lidocaine 1% 20 ML MDV ONE (21:49)
[2020-08-20] MEDS ORDERED: cefTRIAXone\\ROCEPHIN 1 GM VIAL ONE (21:49)
[2020-08-20] MEDS ORDERED: HYDROcodone/Acetaminophen 5/325 mg Tablet ONE (21:57)
== END 2020-08-20 22:17 | disposition home or self-care (01) ==
LOC: MADERS 20:24
DX: L03.211 Cellulitis of face (principal); K04.7 Periapical abscess without sinus; E78.5 Hyperlipidemia, unspecified; E78.00 Pure hypercholesterolemia, unspecified; G47.30 Sleep apnea, unspecified; E11.22 Type 2 diabetes mellitus with diabetic chronic kidney disease; I12.9 Hypertensive chronic kidney disease with stage 1 through stage 4 chronic kidney disease, or unspecified chronic kidney disease; N18.9 Chronic kidney disease, unspecified; Z79.82 Long term (current) use of aspirin; Z79.84 Long term (current) use of oral hypoglycemic drugs; Z79.899 Other long term (current) drug therapy
CPT/HCPCS: 64400; 96372; J0696; S0020

== ENCOUNTER 2020-11-16 10:11 | Emergency (ER) | payer MEDICARE, MEDICAID | END 2020-11-16 11:00 | disposition home or self-care (01) | LOC: MADERS 10:11 | DX: J06.9 Acute upper respiratory infection, unspecified (principal); H69.83 Other specified disorders of Eustachian tube, bilateral; I12.9 Hypertensive chronic kidney disease with stage 1 through stage 4 chronic kidney disease, or unspecified chronic kidney disease; N18.9 Chronic kidney disease, unspecified; E11.22 Type 2 diabetes mellitus with diabetic chronic kidney disease; E78.5 Hyperlipidemia, unspecified; E78.00 Pure hypercholesterolemia, unspecified; G47.30 Sleep apnea, unspecified; Z79.899 Other long term (current) drug therapy; Z79.82 Long term (current) use of aspirin; Z79.84 Long term (current) use of oral hypoglycemic drugs | CPT/HCPCS: 99283 ==

== ENCOUNTER 2021-02-23 20:03 | Emergency (ER) | payer MEDICARE, MEDICAID ==
[2021-02-23] MEDS ORDERED: Acetaminophen 500 MG TAB ONE (20:56)
[2021-02-24 17:27] LABS: SARS-CoV-2 PCR by NAA Not Detected (NotDetected)
== END 2021-02-23 21:35 | disposition home or self-care (01) ==
LOC: MADERS 20:03
DX: R51.9 Headache, unspecified (principal); R09.89 Other specified symptoms and signs involving the circulatory and respiratory systems; R19.7 Diarrhea, unspecified; J02.9 Acute pharyngitis, unspecified; R50.9 Fever, unspecified; R53.83 Other fatigue; R53.81 Other malaise; M79.10 Myalgia, unspecified site; I12.9 Hypertensive chronic kidney disease with stage 1 through stage 4 chronic kidney disease, or unspecified chronic kidney disease; N18.9 Chronic kidney disease, unspecified; E11.22 Type 2 diabetes mellitus with diabetic chronic kidney disease; E78.5 Hyperlipidemia, unspecified; E78.00 Pure hypercholesterolemia, unspecified; G47.30 Sleep apnea, unspecified; Z20.822 Contact with and (suspected) exposure to COVID-19; Z79.01 Long term (current) use of anticoagulants; Z79.84 Long term (current) use of oral hypoglycemic drugs; Z79.899 Other long term (current) drug therapy; Z79.82 Long term (current) use of aspirin
CPT/HCPCS: 99284; U0003; U0005

== ENCOUNTER 2021-04-09 19:29 | Emergency (ER) | payer MEDICARE, MEDICAID ==
[~2021-04-09 19:29] MED LIST changes: -Sodium Chloride 0.9% 1,000 ML BAG ONE
[2021-04-09] MEDS ORDERED: Morphine 4 MG/ML VIAL ONE (19:59)
[2021-04-09] MEDS ORDERED: Ondansetron PF 4 MG/2 ML Vial ONE (19:59)
[2021-04-09 20:01] LABS: #Basophils 0.1 thou/uL (0.0-0.2); #Eosinphils 0.2 thou/uL (0.0-0.7); #Lymphocytes 3.1 thou/uL (1.20-3.40); #Monocytes 0.4 thou/uL (0.11-0.59); #Neutrophils 5.5 thou/uL (1.40-6.50); %Basophils 0.6 % (0.0-1.0); %Eosinophils 1.8 % (0.0-10.0); %Lymphocytes 33.9 % (21.0-51.0); %Monocytes 4.1 % (0.0-10.0); %Neutrophils 59.6 % (42.0-75.0); Hemoglobin 11.3 g/dL (12.0-16.0); Mean Corpuscular HGB CONC 30.2 g/dL (32.0-36.0); Mean Corpuscular Hemoglobin 27.7 pg (27.0-31.0); Mean Corpuscular Volume 91.7 fL (78.0-98.0); Mean Platelet Volume 5.6 fL (7.4-10.4); Platelet Count 182 thou/uL (130-400); Red Blood Cell (RBC) Count 4.09 mill/uL (4.20-5.40); White Blood Cell (WBC) Count 9.2 thou/uL (4.8-10.8)
[2021-04-09 20:22] LABS: ALT (SGPT) 12 U/L (8-55); AST (SGOT) 11 U/L (5-34); Albumin 3.8 g/dL (3.5-5.0); Alkaline Phosphatase 98 U/L (40-110); Anion Gap 17 mmol/L (10-20); BUN (Urea Nitrogen) 16 mg/dL (9.8-20.1); Bilirubin, Total Less than 0.2 mg/dL (0.2-1.2); Calc. Creatinine Clearance 0 mL/min (70-130); Calcium 8.6 mg/dL (7.8-10.44); Carbon Dioxide 18 mmol/L (22-29); Chloride 104 mmol/L (98-107); Globulin 3.6 g/dL (2.4-3.5); Glucose 217 mg/dL (70-105); Lipase 63 U/L (8-78); Potassium 4.2 mmol/L (3.5-5.1); Protein, Total 7.4 g/dL (6.0-8.3); Sodium 135 mmol/L (136-145)
[2021-04-09] MEDS ORDERED: Sodium Chloride 0.9% 1,000 ML ONE (20:27)
[2021-04-09] MEDS ORDERED: Mag-Al Plus 1200 MG/1200 MG/120 MG/30 ML UDCUP ONE (21:43)
[2021-04-09] MEDS ORDERED: Lidocaine Viscous Sol 2% 15 ml UD Cup ONE (21:43)
[2021-04-09 21:56] LABS: Bilirubin Negative (Negative); Blood, Urine Negative (Negative); Clarity Clear (Clear); Glucose, Urine (Dipstick) Negative (Negative); Ketone, Urine Negative (Negative); Leukocyte Trace (Negative); Nitrite Negative (Negative); Protein, Urine (Dipstick) Negative (Neg-Trace); Urobilinogen 0.2 mg/dL (Less than 2)
[2021-04-09 22:02] LABS: RBC/HPF None Seen HPF (0-3); WBC/HPF 0-3 HPF (0-3)
== END 2021-04-09 23:24 | disposition home or self-care (01) ==
LOC: MADERS 19:29
DX: R10.84 Generalized abdominal pain (principal); E11.9 Type 2 diabetes mellitus without complications; E78.5 Hyperlipidemia, unspecified; G47.30 Sleep apnea, unspecified; I12.9 Hypertensive chronic kidney disease with stage 1 through stage 4 chronic kidney disease, or unspecified chronic kidney disease; N18.9 Chronic kidney disease, unspecified; G47.00 Insomnia, unspecified; Z79.899 Other long term (current) drug therapy; Z79.82 Long term (current) use of aspirin; Z79.84 Long term (current) use of oral hypoglycemic drugs
CPT/HCPCS: 71045; 74177; 80053; 81003; 81015; 83605; 83690; 83880; 84484; 85025; 93005; 96372; 96374; 96375; J0500; J2270; J2405; J7050; Q9967

== ENCOUNTER 2021-05-20 16:50 | Emergency (ER) | payer MEDICARE, MEDICAID ==
[2021-05-20] MEDS ORDERED: Acetaminophen 500 MG TAB ONE (17:22)
[2021-05-20 17:58] LABS: Eosinophils 1 % (0-10); Hemoglobin 10.9 g/dL (12.0-16.0); Hypochromia SLIGHT = 6-15 cells (100X) (0-5/hpf); Lymphocytes 19 % (21-51); MDiff Complete? YES; Mean Corpuscular HGB CONC 31.4 g/dL (32.0-36.0); Mean Corpuscular Hemoglobin 28.1 pg (27.0-31.0); Mean Corpuscular Volume 89.5 fL (78.0-98.0); Mean Platelet Volume 5.4 fL (7.4-10.4); Monocytes 3 % (0-10); Neutrophil 67 % (42-75); Platelet Count 198 thou/uL (130-400); Platelet Morphology Comment Appears Adequate; RBC Distribution Width 13.9 % (11.5-14.5); Reactive Lymphocytes 10 % (0-10); Red Blood Cell (RBC) Count 3.86 mill/uL (4.20-5.40); White Blood Cell (WBC) Count 9.3 thou/uL (4.8-10.8)
[2021-05-20 17:59] LABS: ALT (SGPT) 10 U/L (8-55); AST (SGOT) 9 U/L (5-34); Albumin 3.8 g/dL (3.5-5.0); Alkaline Phosphatase 89 U/L (40-110); Anion Gap 14 mmol/L (10-20); BUN (Urea Nitrogen) 15 mg/dL (9.8-20.1); Bilirubin, Total 0.2 mg/dL (0.2-1.2); Calc. Creatinine Clearance 0 mL/min (70-130); Calcium 9.3 mg/dL (7.8-10.44); Carbon Dioxide 25 mmol/L (22-29); Chloride 103 mmol/L (98-107); Globulin 3.5 g/dL (2.4-3.5); Glucose 147 mg/dL (70-105); Potassium 3.9 mmol/L (3.5-5.1); Protein, Total 7.3 g/dL (6.0-8.3); Sodium 138 mmol/L (136-145)
[2021-05-20] MEDS ORDERED: Sodium Chloride 0.9% 100 ML ONE (18:40)
[2021-05-20] MEDS ORDERED: cefTRIAXone\\ROCEPHIN 1 GM VIAL ONE (18:40)
[2021-05-20] MEDS ORDERED: Azithromycin 250 MG TAB ONE (18:40)
[2021-05-21 15:27] LABS: SARS-CoV-2 PCR by NAA DETECTED (NotDetected)
== END 2021-05-20 19:12 | disposition home or self-care (01) ==
LOC: MADERS 16:50
DX: U07.1 COVID-19 (principal); J20.9 Acute bronchitis, unspecified; I13.0 Hypertensive heart and chronic kidney disease with heart failure and stage 1 through stage 4 chronic kidney disease, or unspecified chronic kidney disease; E11.42 Type 2 diabetes mellitus with diabetic polyneuropathy; E11.22 Type 2 diabetes mellitus with diabetic chronic kidney disease; I50.9 Heart failure, unspecified; N18.9 Chronic kidney disease, unspecified; K21.9 Gastro-esophageal reflux disease without esophagitis; E78.5 Hyperlipidemia, unspecified; E78.00 Pure hypercholesterolemia, unspecified; G47.00 Insomnia, unspecified; Z79.82 Long term (current) use of aspirin; Z79.84 Long term (current) use of oral hypoglycemic drugs; Z79.899 Other long term (current) drug therapy
CPT/HCPCS: 71045; 80053; 83605; 84484; 85025; 86140; 87040; 94760; U0003; U0005; 96365; J0696; J3490

== ENCOUNTER 2021-06-06 14:08 | Emergency (ER) | payer MEDICARE, MEDICAID ==
[2021-06-06] MEDS ORDERED: Ketorolac Tromethamine 30 MG/ML VIAL ONE (14:42)
[2021-06-06] MEDS ORDERED: diphenhydrAMINE 50 MG/ML VIAL ONE (16:15)
[2021-06-06] MEDS ORDERED: Metoclopramide HCl 10 MG/2 ML VIAL ONE (16:15)
[2021-06-06] MEDS ORDERED: Sodium Chloride 0.9% 1,000 ML ONE (16:15)
[2021-06-06 16:55] LABS: #Basophils 0.1 thou/uL (0.0-0.2); #Eosinphils 0.1 thou/uL (0.0-0.7); #Lymphocytes 2.6 thou/uL (1.20-3.40); #Monocytes 0.5 thou/uL (0.11-0.59); #Neutrophils 3.8 thou/uL (1.40-6.50); %Basophils 0.8 % (0.0-1.0); %Lymphocytes 37.1 % (21.0-51.0); %Monocytes 6.5 % (0.0-10.0); %Neutrophils 53.7 % (42.0-75.0); Hemoglobin 10.6 g/dL (12.0-16.0); Mean Corpuscular HGB CONC 30.8 g/dL (32.0-36.0); Mean Corpuscular Hemoglobin 27.9 pg (27.0-31.0); Mean Corpuscular Volume 90.5 fL (78.0-98.0); Mean Platelet Volume 6.1 fL (7.4-10.4); Platelet Count 190 thou/uL (130-400); RBC Distribution Width 13.7 % (11.5-14.5); Red Blood Cell (RBC) Count 3.79 mill/uL (4.20-5.40)
[2021-06-06 17:08] LABS: ALT (SGPT) 14 U/L (8-55); AST (SGOT) 10 U/L (5-34); Albumin 3.7 g/dL (3.5-5.0); Alkaline Phosphatase 92 U/L (40-110); Anion Gap 13 mmol/L (10-20); BUN (Urea Nitrogen) 15 mg/dL (9.8-20.1); Bilirubin, Total 0.3 mg/dL (0.2-1.2); Calc. Creatinine Clearance 0 mL/min (70-130); Calcium 9.4 mg/dL (7.8-10.44); Carbon Dioxide 25 mmol/L (22-29); Chloride 105 mmol/L (98-107); Globulin 3.6 g/dL (2.4-3.5); Glucose 119 mg/dL (70-105); Potassium 4.2 mmol/L (3.5-5.1); Protein, Total 7.3 g/dL (6.0-8.3); Sodium 139 mmol/L (136-145)
== END 2021-06-06 17:56 | disposition home or self-care (01) ==
LOC: MADERS 14:08
DX: U07.1 COVID-19 (principal); G43.909 Migraine, unspecified, not intractable, without status migrainosus; K21.9 Gastro-esophageal reflux disease without esophagitis; E78.5 Hyperlipidemia, unspecified; E78.00 Pure hypercholesterolemia, unspecified; G47.30 Sleep apnea, unspecified; I13.0 Hypertensive heart and chronic kidney disease with heart failure and stage 1 through stage 4 chronic kidney disease, or unspecified chronic kidney disease; I50.9 Heart failure, unspecified; E11.22 Type 2 diabetes mellitus with diabetic chronic kidney disease; N18.9 Chronic kidney disease, unspecified; Z79.82 Long term (current) use of aspirin; Z79.899 Other long term (current) drug therapy
CPT/HCPCS: 36415; 71045; 80053; 85025; 87804; 96372; 96374; 96375; J1200; J1885; J2765; J7050

== ENCOUNTER 2021-09-28 17:28 | Emergency (ER) | payer MEDICARE, MEDICAID ==
[~2021-09-28 17:28] MED LIST changes: -Iopamidol 370 76% 100 ML VIAL ONE; +Iopamidol 370 76% 125 ML VIAL FS ONE; +Sodium Chloride 0.9% 100 ML BAG ONE
[2021-09-28 19:17] LABS: #Basophils 0.1 thou/uL (0.0-0.2); #Eosinphils 0.2 thou/uL (0.0-0.7); #Lymphocytes 3.3 thou/uL (1.20-3.40); #Monocytes 0.5 thou/uL (0.11-0.59); #Neutrophils 3.7 thou/uL (1.40-6.50); %Basophils 0.8 % (0.0-1.0); %Eosinophils 2.7 % (0.0-10.0); %Lymphocytes 42.6 % (21.0-51.0); %Monocytes 5.9 % (0.0-10.0); Hemoglobin 10.6 g/dL (12.0-16.0); Mean Corpuscular HGB CONC 30.4 g/dL (32.0-36.0); Mean Corpuscular Hemoglobin 27.5 pg (27.0-31.0); Mean Corpuscular Volume 90.3 fL (78.0-98.0); Mean Platelet Volume 7.4 fL (7.4-10.4); Platelet Count 185 thou/uL (130-400); RBC Distribution Width 13.7 % (11.5-14.5); Red Blood Cell (RBC) Count 3.84 mill/uL (4.20-5.40); White Blood Cell (WBC) Count 7.7 thou/uL (4.8-10.8)
[2021-09-28] MEDS ORDERED: Morphine 4 MG/ML VIAL ONE (19:31)
[2021-09-28 19:32] LABS: BHCG - Serum Negative (NEGATIVE); Pregs Control Background? CLEAR/WHITE (CLR/WHITE); Pregs Control Bar Appear? YES (CONTROL BAR)
[2021-09-28] MEDS ORDERED: Promethazine HCl 25 MG/ML VIAL ONE (19:32)
[2021-09-28] MEDS ORDERED: Sodium Chloride 0.9% 1,000 ML ONE (19:32)
[2021-09-28] MEDS ORDERED: Famotidine/PF 20 mg/2ml Vial ONE (19:32)
[2021-09-28 19:35] LABS: ALT (SGPT) 9 U/L (8-55); AST (SGOT) 12 U/L (5-34); Albumin 3.7 g/dL (3.5-5.0); Alkaline Phosphatase 80 U/L (40-110); Anion Gap 17 mmol/L (10-20); BUN (Urea Nitrogen) 17 mg/dL (9.8-20.1); Bilirubin, Total 0.2 mg/dL (0.2-1.2); Calc. Creatinine Clearance 0 mL/min (70-130); Calcium 9.1 mg/dL (7.8-10.44); Carbon Dioxide 24 mmol/L (22-29); Chloride 103 mmol/L (98-107); Globulin 3.5 g/dL (2.4-3.5); Glucose 73 mg/dL (70-105); Lipase 71 U/L (8-78); Potassium 4.8 mmol/L (3.5-5.1); Protein, Total 7.2 g/dL (6.0-8.3); Sodium 139 mmol/L (136-145)
[2021-09-28] MEDS ORDERED: Mag-Al Plus 1200 MG/1200 MG/120 MG/30 ML UDCUP ONE (21:09)
[2021-09-28] MEDS ORDERED: Lidocaine Viscous Sol 2% 15 ml UD Cup ONE (21:09)
[2021-09-28 22:50] LABS: Troponin I Less than 0.010 ng/mL (< 0.028)
== END 2021-09-28 23:43 | disposition home or self-care (01) ==
LOC: MADERS 17:28
DX: R10.13 Epigastric pain (principal); D64.9 Anemia, unspecified; E04.9 Nontoxic goiter, unspecified; K21.9 Gastro-esophageal reflux disease without esophagitis; G47.00 Insomnia, unspecified; N18.9 Chronic kidney disease, unspecified; I12.9 Hypertensive chronic kidney disease with stage 1 through stage 4 chronic kidney disease, or unspecified chronic kidney disease; E11.22 Type 2 diabetes mellitus with diabetic chronic kidney disease; I50.9 Heart failure, unspecified; E78.5 Hyperlipidemia, unspecified; E78.00 Pure hypercholesterolemia, unspecified
CPT/HCPCS: 36415; 71275; 74174; 80053; 83605; 83690; 84484; 84703; 85025; 93005; 96365; 96366; 96375; J2270; J2550; J7050; Q9967; S0028

== ENCOUNTER 2021-11-08 15:01 | Outpatient (CLI) | payer MEDICARE, MEDICAID ==
[2021-11-08 15:17] LABS: #Basophils 0.1 thou/uL (0.0-0.2); #Eosinphils 0.2 thou/uL (0.0-0.7); #Lymphocytes 2.6 thou/uL (1.20-3.40); #Monocytes 0.6 thou/uL (0.11-0.59); #Neutrophils 4.1 thou/uL (1.40-6.50); %Basophils 0.7 % (0.0-1.0); %Eosinophils 2.7 % (0.0-10.0); %Lymphocytes 34.4 % (21.0-51.0); %Monocytes 7.7 % (0.0-10.0); %Neutrophils 54.5 % (42.0-75.0); Hemoglobin 11.3 g/dL (12.0-16.0); Mean Corpuscular HGB CONC 30.5 g/dL (32.0-36.0); Mean Corpuscular Hemoglobin 26.7 pg (27.0-31.0); Mean Corpuscular Volume 87.8 fL (78.0-98.0); Mean Platelet Volume 7.6 fL (7.4-10.4); Platelet Count 172 thou/uL (130-400); RBC Distribution Width 13.6 % (11.5-14.5); Red Blood Cell (RBC) Count 4.22 mill/uL (4.20-5.40); White Blood Cell (WBC) Count 7.6 thou/uL (4.8-10.8)
[2021-11-08 15:24] LABS: ALT (SGPT) 13 U/L (8-55); AST (SGOT) 14 U/L (5-34); Albumin 4.1 g/dL (3.5-5.0); Alkaline Phosphatase 92 U/L (40-110); Anion Gap 18 mmol/L (10-20); BUN (Urea Nitrogen) 13 mg/dL (9.8-20.1); Bilirubin, Total 0.3 mg/dL (0.2-1.2); Calc. Creatinine Clearance 0 mL/min (70-130); Calcium 9.7 mg/dL (7.8-10.44); Carbon Dioxide 25 mmol/L (22-29); Chloride 104 mmol/L (98-107); Globulin 3.8 g/dL (2.4-3.5); Glucose 106 mg/dL (70-105); Potassium 4.9 mmol/L (3.5-5.1); Protein, Total 7.9 g/dL (6.0-8.3); Sodium 142 mmol/L (136-145)
== END 2021-11-08 15:02 | disposition home or self-care (01) ==
LOC: MADLAB 15:01
PROVIDERS: ATTEND Family Medicine
DX: A04.72 Enterocolitis due to Clostridium difficile, not specified as recurrent (principal); R10.84 Generalized abdominal pain
CPT/HCPCS: 80053; 85025

== ENCOUNTER 2021-11-15 15:03 | Outpatient (CLI) | payer MEDICARE, MEDICAID | END 2021-11-15 15:04 | disposition home or self-care (01) | LOC: MADCT 15:03 | PROVIDERS: ATTEND Family Medicine | DX: R10.84 Generalized abdominal pain (principal); D25.9 Leiomyoma of uterus, unspecified; K57.30 Diverticulosis of large intestine without perforation or abscess without bleeding | CPT/HCPCS: 74160 ==

== ENCOUNTER 2021-12-19 18:02 | Emergency (ER) | payer MEDICARE, MEDICAID ==
[~2021-12-19 18:02] MED LIST changes: -Iopamidol 370 76% 125 ML VIAL FS ONE; +Sodium Chloride 0.9% 1,000 ML BAG ONE; -Sodium Chloride 0.9% 100 ML BAG ONE
[2021-12-19 19:55] LABS: #Basophils 0.1 thou/uL (0.0-0.2); #Eosinphils 0.2 thou/uL (0.0-0.7); #Lymphocytes 3.1 thou/uL (1.20-3.40); #Monocytes 0.4 thou/uL (0.11-0.59); #Neutrophils 3.3 thou/uL (1.40-6.50); %Basophils 1.4 % (0.0-1.0); %Eosinophils 2.9 % (0.0-10.0); %Lymphocytes 44.1 % (21.0-51.0); %Monocytes 5.5 % (0.0-10.0); Hemoglobin 9.9 g/dL (12.0-16.0); Mean Corpuscular HGB CONC 31.4 g/dL (32.0-36.0); Mean Corpuscular Hemoglobin 28.1 pg (27.0-31.0); Mean Corpuscular Volume 89.6 fL (78.0-98.0); Platelet Count 162 thou/uL (130-400); RBC Distribution Width 13.9 % (11.5-14.5); Red Blood Cell (RBC) Count 3.51 mill/uL (4.20-5.40); White Blood Cell (WBC) Count 7.1 thou/uL (4.8-10.8)
[2021-12-19 20:07] LABS: ALT (SGPT) 7 U/L (8-55); AST (SGOT) 16 U/L (5-34); Albumin 3.8 g/dL (3.5-5.0); Alkaline Phosphatase 89 U/L (40-110); Anion Gap 15 mmol/L (10-20); BUN (Urea Nitrogen) 12 mg/dL (9.8-20.1); Bilirubin, Total 0.4 mg/dL (0.2-1.2); Calc. Creatinine Clearance 0 mL/min (70-130); Calcium 9.2 mg/dL (7.8-10.44); Carbon Dioxide 19 mmol/L (22-29); Chloride 108 mmol/L (98-107); Estimated GFR 58; Globulin 3.6 g/dL (2.4-3.5); Glucose 80 mg/dL (70-105); Protein, Total 7.4 g/dL (6.0-8.3); Sodium 137 mmol/L (136-145)
[2021-12-19] MEDS ORDERED: Morphine 2 MG/ML VIAL ONE (20:58)
[2021-12-19] MEDS ORDERED: Sodium Chloride 0.9% 50 ML ONE (20:59)
[2021-12-19] MEDS ORDERED: Promethazine HCl 25 MG/ML VIAL ONE (20:59)
== END 2021-12-19 21:42 | disposition home or self-care (01) ==
LOC: MADERS 18:02
DX: A04.71 Enterocolitis due to Clostridium difficile, recurrent (principal); I13.0 Hypertensive heart and chronic kidney disease with heart failure and stage 1 through stage 4 chronic kidney disease, or unspecified chronic kidney disease; E11.22 Type 2 diabetes mellitus with diabetic chronic kidney disease; N18.9 Chronic kidney disease, unspecified; I50.9 Heart failure, unspecified; K21.9 Gastro-esophageal reflux disease without esophagitis; E78.5 Hyperlipidemia, unspecified; E11.42 Type 2 diabetes mellitus with diabetic polyneuropathy; G47.30 Sleep apnea, unspecified; E78.00 Pure hypercholesterolemia, unspecified; G47.00 Insomnia, unspecified; Z79.82 Long term (current) use of aspirin; Z79.84 Long term (current) use of oral hypoglycemic drugs; Z79.899 Other long term (current) drug therapy
CPT/HCPCS: 80053; 85025; 87324; 87449; 96361; 96365; 96375; J2270; J2550; J7050

== ENCOUNTER 2022-01-04 09:43 | Outpatient (CLI) | payer MEDICARE, MEDICAID | END 2022-01-04 09:44 | disposition home or self-care (01) | LOC: MADCT 09:43 | PROVIDERS: ATTEND Physician Assistant Medical | DX: A04.72 Enterocolitis due to Clostridium difficile, not specified as recurrent (principal); R10.13 Epigastric pain; R10.11 Right upper quadrant pain; K57.30 Diverticulosis of large intestine without perforation or abscess without bleeding; D25.9 Leiomyoma of uterus, unspecified | CPT/HCPCS: 74176 ==

== ENCOUNTER 2022-03-21 10:44 | Outpatient (CLI) | payer MEDICARE, MEDICAID ==
[2022-03-21 11:46] LABS: #Basophils 0.1 thou/uL (0.0-0.2); #Eosinphils 0.2 thou/uL (0.0-0.7); #Lymphocytes 2.5 thou/uL (1.20-3.40); #Monocytes 0.3 thou/uL (0.11-0.59); #Neutrophils 3.6 thou/uL (1.40-6.50); %Basophils 0.9 % (0.0-1.0); %Eosinophils 3.3 % (0.0-10.0); %Lymphocytes 37.9 % (21.0-51.0); %Monocytes 3.9 % (0.0-10.0); Hemoglobin 11.3 g/dL (12.0-16.0); Mean Corpuscular HGB CONC 30.7 g/dL (32.0-36.0); Mean Corpuscular Hemoglobin 28.3 pg (27.0-31.0); Mean Corpuscular Volume 92.1 fl (78.0-98.0); Mean Platelet Volume 7.2 fL (7.4-10.4); Platelet Count 178 thou/uL (130-400); RBC Distribution Width 14.5 % (11.5-14.5); White Blood Cell (WBC) Count 6.6 thou/uL (4.8-10.8)
[2022-03-21 12:07] LABS: ALT (SGPT) 9 U/L (8-55); AST (SGOT) 14 U/L (5-34); Alkaline Phosphatase 91 U/L (40-110); Anion Gap 16 mmol/L (10-20); BUN (Urea Nitrogen) 12 mg/dL (9.8-20.1); Bilirubin, Total 0.3 mg/dL (0.2-1.2); Calc. Creatinine Clearance 0 mL/min (70-130); Calcium 9.3 mg/dL (7.8-10.44); Carbon Dioxide 22 mmol/L (22-29); Chloride 106 mmol/L (98-107); Estimated GFR 50; Globulin 3.8 g/dL (2.4-3.5); Glucose 111 mg/dL (70-105); Potassium 4.6 mmol/L (3.5-5.1); Protein, Total 7.8 g/dL (6.0-8.3); Sodium 139 mmol/L (136-145)
== END 2022-03-21 10:45 | disposition home or self-care (01) ==
LOC: MADLAB 10:44
PROVIDERS: ATTEND Family Medicine
DX: G44.83 Primary cough headache (principal); R53.83 Other fatigue
CPT/HCPCS: 36415; 71046; 80053; 84443; 85025

== ENCOUNTER 2022-06-21 09:23 | Emergency (ER) | payer MEDICARE, MEDICAID ==
[2022-06-21] MEDS ORDERED: Nitroglycerin 0.4 MG TAB 1 EACH ONE (09:37)
[2022-06-21] MEDS ORDERED: Aspirin 325 MG TAB ONE (09:43)
[2022-06-21 09:47] LABS: #Basophils 0.1 thou/uL (0.0-0.2); #Eosinphils 0.3 thou/uL (0.0-0.7); #Lymphocytes 3.5 thou/uL (1.20-3.40); #Monocytes 0.3 thou/uL (0.11-0.59); #Neutrophils 3.1 thou/uL (1.40-6.50); %Eosinophils 3.8 % (0.0-10.0); %Lymphocytes 47.9 % (21.0-51.0); %Monocytes 4.3 % (0.0-10.0); %Neutrophils 42.1 % (42.0-75.0); Hemoglobin 11.5 g/dL (12.0-16.0); Mean Corpuscular Hemoglobin 28.9 pg (27.0-31.0); Mean Corpuscular Volume 90.4 fl (78.0-98.0); Mean Platelet Volume 5.7 fL (7.4-10.4); Platelet Count 203 10x3/uL (130-400); RBC Distribution Width 13.1 % (11.5-14.5); Red Blood Cell (RBC) Count 3.98 mill/uL (4.20-5.40); White Blood Cell (WBC) Count 7.4 10x3/uL (4.8-10.8)
[2022-06-21] MEDS ORDERED: Sodium Chloride 0.9% 500 ML ONE (09:49)
[2022-06-21 10:08] LABS: ALT (SGPT) 19 U/L (8-55); AST (SGOT) 18 U/L (5-34); Albumin 3.9 g/dL (3.5-5.0); Alkaline Phosphatase 102 U/L (40-110); Anion Gap 16 mmol/L (10-20); BUN (Urea Nitrogen) 17 mg/dL (9.8-20.1); Bilirubin, Total 0.3 mg/dL (0.2-1.2); Calc. Creatinine Clearance 0 mL/min (70-130); Carbon Dioxide 19 mmol/L (22-29); Chloride 107 mmol/L (98-107); Estimated GFR 53; Globulin 3.4 g/dL (2.4-3.5); Glucose 123 mg/dL (70-105); Magnesium 1.7 mg/dL (1.6-2.6); Potassium 4.7 mmol/L (3.5-5.1); Protein, Total 7.3 g/dL (6.0-8.3); Sodium 137 mmol/L (136-145)
[2022-06-21 10:09] LABS: Acetaminophen Less than 10.0 mcg/mL (10.0-30.0); Alcohol Less than 10 mg/dL (Less than 10); Salicylate Less than 8.0 mg/dL (15.0-30.0)
[2022-06-21] MEDS ORDERED: Nitroglycerin 2% Ointment 1 INCH/1 GM Packet ONE (10:22)
[2022-06-21 11:29] LABS: Amphetamine Not Detected (NotDetected); Barbiturates Screen Not Detected (NotDetected); Benzodiazepine Screen Not Detected (NotDetected); Cocaine Metabolite Screen Not Detected (NotDetected); Medtox Control Line Valid? VALID (VALID); Methadone Not Detected (NotDetected); Methamphetamine Not Detected (NotDetected); Opiate Screen Not Detected (NotDetected); Oxycodone Screen Not Detected (NotDetected); Phencyclidine (PCP) Not Detected (NotDetected); THC/Cannabinoid Screen Not Detected (NotDetected); Tricyclic Screen Not Detected (NotDetected)
[2022-06-21] MEDS ORDERED: Morphine 4 MG/ML VIAL ONE (12:01)
[2022-06-21 12:58] LABS: Troponin I Less than 0.010 ng/mL (< 0.028)
== END 2022-06-21 13:05 | disposition short-term general hospital (02) ==
LOC: MADERS 09:23
DX: R07.9 Chest pain, unspecified (principal); K21.9 Gastro-esophageal reflux disease without esophagitis; E78.5 Hyperlipidemia, unspecified; E11.22 Type 2 diabetes mellitus with diabetic chronic kidney disease; I13.0 Hypertensive heart and chronic kidney disease with heart failure and stage 1 through stage 4 chronic kidney disease, or unspecified chronic kidney disease; N18.9 Chronic kidney disease, unspecified
CPT/HCPCS: 71045; 71275; 74174; 80053; 80306; 80307; 83735; 83880; 84484; 85025; 93005; 96374; J2270; J7030

== ENCOUNTER 2022-06-29 10:39 | Emergency (ER) | payer MEDICARE, MEDICAID ==
[2022-06-29] MEDS ORDERED: HYDROcodone/Acetaminophen 5/325 mg Tablet ONE (11:12)
== END 2022-06-29 11:52 | disposition home or self-care (01) ==
LOC: MADERS 10:39
DX: R10.31 Right lower quadrant pain (principal); G89.29 Other chronic pain; M54.50 Low back pain, unspecified; I13.0 Hypertensive heart and chronic kidney disease with heart failure and stage 1 through stage 4 chronic kidney disease, or unspecified chronic kidney disease; E11.22 Type 2 diabetes mellitus with diabetic chronic kidney disease; N18.9 Chronic kidney disease, unspecified; I50.9 Heart failure, unspecified; K21.9 Gastro-esophageal reflux disease without esophagitis; E78.00 Pure hypercholesterolemia, unspecified; G47.00 Insomnia, unspecified; G47.30 Sleep apnea, unspecified; Z79.82 Long term (current) use of aspirin; Z79.84 Long term (current) use of oral hypoglycemic drugs; Z79.899 Other long term (current) drug therapy

== ENCOUNTER 2023-01-29 08:25 | Emergency (ER) | payer OTHER, MEDICAID ==
[2023-01-29] MEDS ORDERED: Sodium Chloride 0.9% 1,000 ML ONE (09:30)
[2023-01-29] MEDS ORDERED: Dicyclomine 20 MG/2 ML VIAL ONE (09:30)
[2023-01-29 09:34] LABS: Bilirubin Negative (Negative); Blood, Urine Negative (Negative); Clarity Clear (Clear); Glucose, Urine (Dipstick) 500 mg/dL (Negative); Ketone, Urine Negative (Negative); Leukocyte Negative (Negative); Nitrite Negative (Negative); Protein, Urine (Dipstick) Negative (Neg-Trace); Specific Gravity, Urine 1.025 (1.005-1.030); Urobilinogen 0.2 mg/dL (Less than 2)
[2023-01-29 09:38] LABS: Bacteria/HPF Rare-Few HPF (None Seen); CAUTI Indications for Culture Pelvic or flank pain; RBC/HPF 0-3 HPF (0-3); Squamous Epithelial 0-3 HPF (0-3); WBC/HPF 0-3 HPF (0-3)
[2023-01-29 09:39] LABS: Urine Culture Reflex No No
[2023-01-29 10:08] LABS: #Lymphocytes 2.3 thou/uL (1.20-3.40); #Monocytes 0.4 thou/uL (0.11-0.59); #Neutrophils 7.1 thou/uL (1.40-6.50); %Basophils 0.2 % (0.0-1.0); %Eosinophils 0.2 % (0.0-10.0); %Lymphocytes 23.4 % (21.0-51.0); %Monocytes 3.8 % (0.0-10.0); %Neutrophils 72.4 % (42.0-75.0); Hematocrit 41.7 % (36.0-47.0); Hemoglobin 13.1 g/dL (12.0-16.0); Mean Corpuscular HGB CONC 31.5 g/dL (32.0-36.0); Mean Corpuscular Volume 92.1 fl (78.0-98.0); Mean Platelet Volume 7.5 fL (7.4-10.4); Platelet Count 149 10x3/uL (130-400); RBC Distribution Width 13.7 % (11.5-14.5); Red Blood Cell (RBC) Count 4.54 mill/uL (4.20-5.40); White Blood Cell (WBC) Count 9.8 10x3/uL (4.8-10.8)
[2023-01-29 11:03] LABS: ALT (SGPT) 14 U/L (8-55); AST (SGOT) 12 U/L (5-34); Albumin 3.9 g/dL (3.5-5.0); Alkaline Phosphatase 131 U/L (40-110); Anion Gap 15 mmol/L (10-20); BUN (Urea Nitrogen) 21 mg/dL (9.8-20.1); Bilirubin, Total 0.3 mg/dL (0.2-1.2); Calc. Creatinine Clearance 0 mL/min (70-130); Calcium 9.5 mg/dL (7.8-10.44); Carbon Dioxide 23 mmol/L (22-29); Chloride 106 mmol/L (98-107); Estimated GFR 46; Globulin 3.9 g/dL (2.4-3.5); Glucose 186 mg/dL (70-105); Lipase 30 U/L (8-78); Potassium 3.8 mmol/L (3.5-5.1); Protein, Total 7.8 g/dL (6.0-8.3); Sodium 140 mmol/L (136-145)
[2023-01-29] MEDS ORDERED: Morphine 4 MG/ML VIAL ONE (11:49)
[2023-01-29] MEDS ORDERED: Ondansetron PF 4 MG/2 ML Vial ONE (11:49)
== END 2023-01-29 12:40 | disposition home or self-care (01) ==
LOC: MADERS 08:25
DX: R10.84 Generalized abdominal pain (principal); E86.0 Dehydration; K21.9 Gastro-esophageal reflux disease without esophagitis; E78.00 Pure hypercholesterolemia, unspecified; E11.22 Type 2 diabetes mellitus with diabetic chronic kidney disease; I13.0 Hypertensive heart and chronic kidney disease with heart failure and stage 1 through stage 4 chronic kidney disease, or unspecified chronic kidney disease; N18.9 Chronic kidney disease, unspecified; Z79.899 Other long term (current) drug therapy; Z79.84 Long term (current) use of oral hypoglycemic drugs
CPT/HCPCS: 74176; 80053; 81001; 83690; 85025; 96361; 96372; 96374; 96375; J2270; J2405; J7050

== ENCOUNTER 2023-02-06 13:48 | Emergency (ER) | payer OTHER, MEDICAID ==
[2023-02-06] MEDS ORDERED: Sodium Chloride 0.9% 1,000 ML ONE (14:27)
[2023-02-06 14:38] LABS: Bilirubin Negative (Negative); Blood, Urine Negative (Negative); Clarity Clear (Clear); Glucose, Urine (Dipstick) >=1000 mg/dL (Negative); Ketone, Urine Negative (Negative); Leukocyte Negative (Negative); Nitrite Negative (Negative); Protein, Urine (Dipstick) Negative (Neg-Trace); Urobilinogen 0.2 mg/dL (Less than 2); pH, Urine 5.5 (5.0-9.0)
[2023-02-06 14:46] LABS: Bacteria/HPF None Seen HPF (None Seen); CAUTI Indications for Culture Urological Procedure; RBC/HPF 0-3 HPF (0-3); Urine Culture Reflex Yes Yes; WBC/HPF 0-3 HPF (0-3)
[2023-02-06] MEDS ORDERED: Acetaminophen 500 MG TAB ONE (16:11)
[2023-02-06 16:44] LABS: Glucose 533 mg/dL (70-105)
[2023-02-06 16:47] LABS: ALT (SGPT) 21 U/L (8-55); AST (SGOT) 15 U/L (5-34); Albumin 3.9 g/dL (3.5-5.0); Alkaline Phosphatase 152 U/L (40-110); Anion Gap 19 mmol/L (10-20); BUN (Urea Nitrogen) 23 mg/dL (9.8-20.1); Bilirubin, Total 0.3 mg/dL (0.2-1.2); Calc. Creatinine Clearance 0 mL/min (70-130); Calcium 9.3 mg/dL (7.8-10.44); Carbon Dioxide 21 mmol/L (22-29); Chloride 97 mmol/L (98-107); Estimated GFR 32; Globulin 3.9 g/dL (2.4-3.5); Potassium 4.7 mmol/L (3.5-5.1); Protein, Total 7.8 g/dL (6.0-8.3); Sodium 132 mmol/L (136-145)
[2023-02-06 16:48] LABS: Hematocrit 42.6 % (36.0-47.0); Hemoglobin 12.9 g/dL (12.0-16.0); Mean Corpuscular HGB CONC 30.3 g/dL (32.0-36.0); Mean Corpuscular Hemoglobin 28.2 pg (27.0-31.0); Mean Corpuscular Volume 92.9 fl (78.0-98.0); Mean Platelet Volume 7.5 fL (7.4-10.4); Platelet Count 138 10x3/uL (130-400); RBC Distribution Width 13.8 % (11.5-14.5); Red Blood Cell (RBC) Count 4.59 mill/uL (4.20-5.40); White Blood Cell (WBC) Count 9.5 10x3/uL (4.8-10.8)
[2023-02-06 16:50] LABS: MDiff Complete? YES
== END 2023-02-06 17:25 | disposition home or self-care (01) ==
LOC: MADERS 13:48
DX: E11.65 Type 2 diabetes mellitus with hyperglycemia (principal); E86.0 Dehydration; K21.9 Gastro-esophageal reflux disease without esophagitis; E11.22 Type 2 diabetes mellitus with diabetic chronic kidney disease; I13.0 Hypertensive heart and chronic kidney disease with heart failure and stage 1 through stage 4 chronic kidney disease, or unspecified chronic kidney disease; N18.9 Chronic kidney disease, unspecified; E78.00 Pure hypercholesterolemia, unspecified; Z79.899 Other long term (current) drug therapy; Z79.84 Long term (current) use of oral hypoglycemic drugs
CPT/HCPCS: 36416; 80053; 81001; 82010; 85025; 87086; 94760; 96360; 96361; J7050

== ENCOUNTER 2023-03-20 12:27 | Emergency (ER) | payer OTHER, MEDICAID ==
[2023-03-20] MEDS ORDERED: Aspirin Chewable 81 MG TAB ONE (12:47)
[2023-03-20 13:35] LABS: ALT (SGPT) 8 U/L (8-55); AST (SGOT) 11 U/L (5-34); Albumin 3.8 g/dL (3.5-5.0); Alkaline Phosphatase 96 U/L (40-110); Anion Gap 16 mmol/L (10-20); BUN (Urea Nitrogen) 16 mg/dL (9.8-20.1); Bilirubin, Total 0.2 mg/dL (0.2-1.2); Calc. Creatinine Clearance 0 mL/min (70-130); Calcium 8.9 mg/dL (7.8-10.44); Carbon Dioxide 24 mmol/L (22-29); Chloride 104 mmol/L (98-107); Estimated GFR 60; Globulin 3.6 g/dL (2.4-3.5); Glucose 180 mg/dL (70-105); Potassium 3.7 mmol/L (3.5-5.1); Protein, Total 7.4 g/dL (6.0-8.3); Sodium 140 mmol/L (136-145)
[2023-03-20 13:36] LABS: Troponin I Less than 0.010 ng/mL (< 0.028)
[2023-03-20 13:37] LABS: Hematocrit 33.7 % (36.0-47.0); Hemoglobin 10.4 g/dL (12.0-16.0); Mean Corpuscular HGB CONC 30.9 g/dL (32.0-36.0); Mean Corpuscular Hemoglobin 29.3 pg (27.0-31.0); Mean Corpuscular Volume 94.8 fl (78.0-98.0); Mean Platelet Volume 6.4 fL (7.4-10.4); Platelet Count 170 10x3/uL (130-400); RBC Distribution Width 14.3 % (11.5-14.5); Red Blood Cell (RBC) Count 3.55 mill/uL (4.20-5.40); White Blood Cell (WBC) Count 8.1 10x3/uL (4.8-10.8)
[2023-03-20 13:38] LABS: Anisocytosis SLIGHT = 6-15 cells (100X) (0-5/hpf); Band 1 % (5-11); Eosinophils 2 % (0-10); Lymphocytes 27 % (21-51); MDiff Complete? YES; Manual Diff?? YES; Monocytes 5 % (0-10); Neutrophil 65 % (42-75)
[2023-03-20 13:39] LABS: Platelet Adequacy Comment Appears Adequate
[2023-03-20] MEDS ORDERED: Oseltamivir 75 MG CAP ONE (13:53)
== END 2023-03-20 14:33 | disposition home or self-care (01) ==
LOC: MADERS 12:27
DX: J10.1 Influenza due to other identified influenza virus with other respiratory manifestations (principal); K21.9 Gastro-esophageal reflux disease without esophagitis; I13.0 Hypertensive heart and chronic kidney disease with heart failure and stage 1 through stage 4 chronic kidney disease, or unspecified chronic kidney disease; E11.22 Type 2 diabetes mellitus with diabetic chronic kidney disease; N18.9 Chronic kidney disease, unspecified; I50.9 Heart failure, unspecified; E78.00 Pure hypercholesterolemia, unspecified; Z20.822 Contact with and (suspected) exposure to COVID-19; Z79.899 Other long term (current) drug therapy
CPT/HCPCS: 36415; 71046; 80053; 83880; 84484; 85025; 87081; 87430; 87635; 87804; 93005; 94760

== ENCOUNTER 2023-06-06 13:21 | Emergency (ER) | payer OTHER, MEDICAID ==
[2023-06-06 14:27] LABS: SARS-CoV-2 NAA Rapid Test Not Detected (NotDetected)
[2023-06-06] MEDS ORDERED: Acetaminophen 500 MG TAB ONE (14:56)
== END 2023-06-06 15:00 | disposition home or self-care (01) ==
LOC: MADERS 13:21
DX: R05.9 Cough, unspecified (principal); R09.81 Nasal congestion; R50.9 Fever, unspecified; I11.0 Hypertensive heart disease with heart failure; I50.9 Heart failure, unspecified; E11.9 Type 2 diabetes mellitus without complications
CPT/HCPCS: 87804; 99284; U0002

== ENCOUNTER 2024-02-25 12:25 | Emergency (ER) | payer MEDICAID, MEDICARE, OTHER | END 2024-02-25 13:44 | disposition home or self-care (01) | LOC: MADERS 12:25 | DX: J06.9 Acute upper respiratory infection, unspecified (principal); I10 Essential (primary) hypertension; E11.22 Type 2 diabetes mellitus with diabetic chronic kidney disease; N18.9 Chronic kidney disease, unspecified; I13.0 Hypertensive heart and chronic kidney disease with heart failure and stage 1 through stage 4 chronic kidney disease, or unspecified chronic kidney disease; I50.9 Heart failure, unspecified; K21.9 Gastro-esophageal reflux disease without esophagitis; E78.00 Pure hypercholesterolemia, unspecified; Z79.899 Other long term (current) drug therapy; Z79.84 Long term (current) use of oral hypoglycemic drugs; Z79.82 Long term (current) use of aspirin | CPT/HCPCS: 87081; 87400; 87426; 87430; 99283 ==

== ENCOUNTER 2024-03-17 12:04 | Emergency (ER) | payer OTHER ==
[2024-03-17] MEDS ORDERED: HYDROcodone/Acetaminophen 10/325 mg Tablet ONE (12:49)
[2024-03-17] MEDS ORDERED: Morphine 2 MG/ML VIAL ONE (12:49)
== END 2024-03-17 13:25 | disposition home or self-care (01) ==
LOC: MADERS 12:04
DX: M54.9 Dorsalgia, unspecified (principal); G89.29 Other chronic pain; F11.93 Opioid use, unspecified with withdrawal; I13.0 Hypertensive heart and chronic kidney disease with heart failure and stage 1 through stage 4 chronic kidney disease, or unspecified chronic kidney disease; I50.9 Heart failure, unspecified; N18.9 Chronic kidney disease, unspecified; E11.22 Type 2 diabetes mellitus with diabetic chronic kidney disease
CPT/HCPCS: 96372; 99283; J2272

== ENCOUNTER 2024-03-31 19:10 | Emergency (ER) | payer OTHER ==
[~2024-03-31 19:10] MED LIST changes: +Iopamidol 370 76% 100 ML VIAL ONE; -Sodium Chloride 0.9% 1,000 ML BAG ONE
[2024-03-31 21:05] LABS: Anisocytosis SLIGHT = 6-15 cells (100X) (0-5/hpf); Band 2 % (5-11); Eosinophils 2 % (0-10); Hematocrit 34.3 % (36.0-47.0); Hemoglobin 10.8 g/dL (12.0-16.0); Hypochromia SLIGHT = 6-15 cells (100X) (0-5/hpf); Lymphocytes 33 % (21-51); MDiff Complete? YES; Mean Corpuscular HGB CONC 31.6 g/dL (32.0-36.0); Mean Corpuscular Hemoglobin 28.5 pg (27.0-31.0); Mean Corpuscular Volume 90.4 fl (78.0-98.0); Mean Platelet Volume 6.4 fL (7.4-10.4); Monocytes 5 % (0-10); Neutrophil 57 % (42-75); Platelet Count 196 10x3/uL (130-400); RBC Distribution Width 13.2 % (11.5-14.5)
[2024-03-31 21:13] LABS: ALT (SGPT) 13 U/L (8-55); AST (SGOT) 14 U/L (5-34); Alkaline Phosphatase 103 U/L (40-110); Anion Gap 16 mmol/L (10-20); BUN (Urea Nitrogen) 8 mg/dL (9.8-20.1); Bilirubin, Total Less than 0.2 mg/dL (0.2-1.2); Calc. Creatinine Clearance 0 mL/min (70-130); Calcium 9.1 mg/dL (7.8-10.44); Carbon Dioxide 20 mmol/L (22-29); Chloride 106 mmol/L (98-107); Estimated GFR 55; Globulin 4.2 g/dL (2.4-3.5); Glucose 91 mg/dL (70-105); Lipase 50 U/L (8-78); Potassium 4.6 mmol/L (3.5-5.1); Protein, Total 7.2 g/dL (6.0-8.3); Sodium 137 mmol/L (136-145)
[2024-03-31] MEDS ORDERED: Morphine 4 MG/ML VIAL ONE (21:26)
[2024-03-31] MEDS ORDERED: Ondansetron PF 4 MG/2 ML Vial ONE (21:26)
[2024-03-31 23:08] LABS: Bacteria/HPF Rare-Few HPF (None Seen); Bilirubin Negative (Negative); Blood, Urine Negative (Negative); CAUTI Indications for Culture Pelvic or flank pain; Clarity Clear (Clear); Glucose, Urine (Dipstick) Negative (Negative); Ketone, Urine Negative (Negative); Leukocyte Negative (Negative); Nitrite Negative (Negative); Protein, Urine (Dipstick) Negative (Neg-Trace); RBC/HPF 0-3 HPF (0-3); Specific Gravity, Urine 1.015 (1.005-1.030); Squamous Epithelial 0-3 HPF (0-3); Urine Culture Reflex No No; Urobilinogen 0.2 mg/dL (Less than 2); WBC/HPF 0-3 HPF (0-3)
[2024-03-31] MEDS ORDERED: Dicyclomine 20 MG/2 ML VIAL ONE (23:15)
== END 2024-04-01 00:15 | disposition home or self-care (01) ==
LOC: MADERS 19:10
DX: R10.11 Right upper quadrant pain (principal); I13.0 Hypertensive heart and chronic kidney disease with heart failure and stage 1 through stage 4 chronic kidney disease, or unspecified chronic kidney disease; E11.22 Type 2 diabetes mellitus with diabetic chronic kidney disease; N18.9 Chronic kidney disease, unspecified; I50.9 Heart failure, unspecified; E03.9 Hypothyroidism, unspecified; K21.9 Gastro-esophageal reflux disease without esophagitis; E78.00 Pure hypercholesterolemia, unspecified; Z79.82 Long term (current) use of aspirin; Z79.84 Long term (current) use of oral hypoglycemic drugs; Z79.899 Other long term (current) drug therapy
CPT/HCPCS: 74177; 80053; 81001; 83605; 83690; 85025; 93005; J2272; J2405; Q9967; 96372; 96374; 96375

== ENCOUNTER 2024-08-01 10:43 | Emergency (ER) | payer OTHER ==
[2024-08-01] MEDS ORDERED: diphenhydrAMINE 50 MG/ML VIAL ONE (11:12)
[2024-08-01] MEDS ORDERED: Lactated Ringer's 1,000 ML ONE (11:12)
[2024-08-01] MEDS ORDERED: Prochlorperazine 10 MG/2 ML VIAL ONE (11:12)
[2024-08-01] MEDS ORDERED: Magnesium 2 GM/50 ML BAG (IN WATER) ONE (12:00)
[2024-08-01] MEDS ORDERED: Sodium Chloride 0.9% 250 ML 250 ML ONE (12:29)
[2024-08-01] MEDS ORDERED: Valproate Sodium 500 MG/5 ML VIAL ONE (12:29)
== END 2024-08-01 14:57 | disposition home or self-care (01) ==
LOC: MADERS 10:43
DX: G43.909 Migraine, unspecified, not intractable, without status migrainosus (principal); R29.700 NIHSS score 0; I13.0 Hypertensive heart and chronic kidney disease with heart failure and stage 1 through stage 4 chronic kidney disease, or unspecified chronic kidney disease; I50.9 Heart failure, unspecified; N18.9 Chronic kidney disease, unspecified; E11.22 Type 2 diabetes mellitus with diabetic chronic kidney disease; Z95.9 Presence of cardiac and vascular implant and graft, unspecified
CPT/HCPCS: J0780; J1200; J3475; J7050; J7120; 96365; 96367; 96375

== ENCOUNTER 2024-10-09 19:54 | Emergency (ER) | payer OTHER ==
[2024-10-09] MEDS ORDERED: Ipratropium/Albuterol 3 ML NEB ONE (20:21)
[2024-10-09] MEDS ORDERED: Azithromycin 500 MG VIAL ONE (20:36)
[2024-10-09] MEDS ORDERED: cefTRIAXone (ROCEPHIN) 2 GM VIAL ONE (20:37)
[2024-10-09 20:41] LABS: Band 2 % (5-11); Eosinophils 1 % (0-10); Hematocrit 35.6 % (36.0-47.0); Hemoglobin 10.5 g/dL (12.0-16.0); Lymphocytes 38 % (21-51); MDiff Complete? YES; Mean Corpuscular HGB CONC 29.4 g/dL (32.0-36.0); Mean Corpuscular Hemoglobin 27.7 pg (27.0-31.0); Mean Corpuscular Volume 94.1 fl (78.0-98.0); Mean Platelet Volume 5.8 fL (7.4-10.4); Monocytes 8 % (0-10); Neutrophil 51 % (42-75); Platelet Count 192 10x3/uL (130-400); RBC Distribution Width 15.1 % (11.5-14.5); Red Blood Cell (RBC) Count 3.78 mill/uL (4.20-5.40); White Blood Cell (WBC) Count 6.7 10x3/uL (4.8-10.8)
[2024-10-09 20:52] LABS: ALT (SGPT) 23 U/L (Less than 34); AST (SGOT) 22 U/L (11-34); Albumin 3.7 g/dL (3.1-4.5); Alkaline Phosphatase 102 U/L (40-110); Anion Gap 14 mmol/L (10-20); BUN (Urea Nitrogen) 16 mg/dL (9.8-20.1); Bilirubin, Total 0.2 mg/dL (0.3-1.2); Calc. Creatinine Clearance 0 mL/min (70-130); Calcium 9.1 mg/dL (7.8-10.44); Carbon Dioxide 22 mmol/L (22-29); Chloride 104 mmol/L (98-107); Estimated GFR 37; Glucose 117 mg/dL (70-105); Potassium 4.2 mmol/L (3.5-5.1); Protein, Total 7.7 g/dL (6.0-8.3); Sodium 136 mmol/L (136-145)
[2024-10-09 20:55] LABS: Troponin I Less than 0.010 ng/mL (< 0.028)
[2024-10-09] MEDS ORDERED: Dexamethasone 10 MG/ML VIAL ONE (20:56)
[2024-10-09] MEDS ORDERED: Albuterol 2.5 MG (0.5 mL) NEB ONE (20:57)
== END 2024-10-09 23:53 | disposition home or self-care (01) ==
LOC: MADERS 19:54
DX: R06.02 Shortness of breath (principal); I13.0 Hypertensive heart and chronic kidney disease with heart failure and stage 1 through stage 4 chronic kidney disease, or unspecified chronic kidney disease; I50.9 Heart failure, unspecified; N18.9 Chronic kidney disease, unspecified; E11.22 Type 2 diabetes mellitus with diabetic chronic kidney disease; Z55.6 Problems related to health literacy
CPT/HCPCS: 36415; 71045; 71275; 80053; 83880; 84484; 85025; 85379; 93005; 96365; 96367; 96375; J0456; J0696; J1100; J7611; J7620

== ENCOUNTER 2025-01-30 12:15 | Emergency (ER) | payer OTHER ==
[2025-01-30 13:01] LABS: Hematocrit 41.5 % (36.0-47.0); Hemoglobin 12.8 g/dL (12.0-16.0); Mean Corpuscular Hemoglobin 28.3 pg (27.0-31.0); Mean Corpuscular Volume 91.7 fl (78.0-98.0); Platelet Count 211 10x3/uL (130-400); Red Blood Cell (RBC) Count 4.52 mill/uL (4.20-5.40); White Blood Cell (WBC) Count 5.5 10x3/uL (4.8-10.8)
[2025-01-30 13:02] LABS: MDiff Complete? YES
[2025-01-30 13:20] LABS: ALT (SGPT) 36 U/L (Less than 34); AST (SGOT) 38 U/L (11-34); Albumin 3.9 g/dL (3.1-4.5); Alkaline Phosphatase 93 U/L (40-110); Anion Gap 18 mmol/L (10-20); BUN (Urea Nitrogen) 6 mg/dL (9.8-20.1); Bilirubin, Total 0.2 mg/dL (0.3-1.2); Calc. Creatinine Clearance 0 mL/min (70-130); Calcium 8.5 mg/dL (7.8-10.44); Carbon Dioxide 20 mmol/L (22-29); Chloride 104 mmol/L (98-107); Globulin 3.3 g/dL (2.4-3.5); Glucose 159 mg/dL (70-105); Lipase 52 U/L (8-78); Potassium 4.0 mmol/L (3.5-5.1); Sodium 138 mmol/L (136-145); Troponin I Less than 0.010 ng/mL (< 0.028)
[2025-01-30 13:27] LABS: CAUTI Indications for Culture Pelvic or flank pain; Glucose, Urine (Dipstick) Negative (Negative); Leukocyte Negative (Negative); Protein, Urine (Dipstick) 30 mg/dL (Neg-Trace); RBC/HPF None Seen HPF (0-3); Specific Gravity, Urine 1.025 (1.005-1.030); WBC/HPF 0-3 HPF (0-3)
[2025-01-30 13:28] LABS: Urine Culture Reflex No No
[2025-01-30] MEDS ORDERED: Dicyclomine 10 MG CAP ONE (13:31)
[2025-01-30] MEDS ORDERED: Ondansetron PF 4 MG/2 ML Vial ONE (13:32)
[2025-01-30] MEDS ORDERED: Acetaminophen 500 MG TAB ONE (15:47)
== END 2025-01-30 16:18 | disposition home or self-care (01) ==
LOC: MADERS 12:15
DX: K59.03 Drug induced constipation (principal); T40.2X5A Adverse effect of other opioids, initial encounter; E87.20 Acidosis, unspecified; E11.22 Type 2 diabetes mellitus with diabetic chronic kidney disease; I13.0 Hypertensive heart and chronic kidney disease with heart failure and stage 1 through stage 4 chronic kidney disease, or unspecified chronic kidney disease; I50.9 Heart failure, unspecified; N18.2 Chronic kidney disease, stage 2 (mild); R74.01 Elevation of levels of liver transaminase levels; R10.9 Unspecified abdominal pain; N32.89 Other specified disorders of bladder
CPT/HCPCS: 74177; 80053; 81001; 83605; 83690; 84484; 85025; 93005; 96361; 96372; 96374; 96375; 96376; J2270; J2272; J2405; J7120; Q9967

== ENCOUNTER 2025-05-03 07:00 | Outpatient (CLI) | payer OTHER ==
[2025-05-03 07:17] LABS: #Basophils 0.1 thou/uL (0.0-0.2); #Eosinophils 0.1 thou/uL (0.0-0.7); #Lymphocytes 2.7 thou/uL (1.20-3.40); #Monocytes 0.2 thou/uL (0.11-0.59); #Neutrophils 3.6 thou/uL (1.40-6.50); %Basophils 1.1 % (0.0-1.0); %Eosinophils 2.0 % (0.0-10.0); %Lymphocytes 40.1 % (21.0-51.0); %Monocytes 3.2 % (0.0-10.0); %Neutrophils 53.6 % (42.0-75.0); Hematocrit 34.9 % (36.0-47.0); Hemoglobin 10.5 g/dL (12.0-16.0); Mean Corpuscular Hemoglobin 27.7 pg (27.0-31.0); Mean Corpuscular Volume 91.7 fl (78.0-98.0); Platelet Count 185 10x3/uL (130-400); Red Blood Cell (RBC) Count 3.80 mill/uL (4.20-5.40); White Blood Cell (WBC) Count 6.7 10x3/uL (4.8-10.8)
[2025-05-03 07:29] LABS: ALT (SGPT) 36 U/L (Less than 34); AST (SGOT) 33 U/L (11-34); Albumin 3.5 g/dL (3.1-4.5); Alkaline Phosphatase 113 U/L (40-110); Anion Gap 15 mmol/L (10-20); BUN (Urea Nitrogen) 13 mg/dL (9.8-20.1); Bilirubin, Total 0.2 mg/dL (0.3-1.2); Calc. Creatinine Clearance 0 mL/min (70-130); Calcium 8.6 mg/dL (7.8-10.44); Carbon Dioxide 22 mmol/L (22-29); Cardiac Risk 2.4 (Less than 4.5); Chloride 108 mmol/L (98-107); Cholesterol 130 mg/dl (< 200 Desired); Globulin 3.1 g/dL (2.4-3.5); Glucose 113 mg/dL (70-105); HDL Cholesterol 54 mg/dL (>60 Neg Risk); LDL Cholesterol, Calculated 64 mg/dL; Potassium 4.4 mmol/L (3.5-5.1); Sodium 141 mmol/L (136-145); Triglycerides 61 mg/dL (Less than 150)
== END 2025-05-03 07:01 | disposition home or self-care (01) ==
LOC: MADLAB 07:00
PROVIDERS: ATTEND Nurse Practitioner Family
DX: I25.10 Atherosclerotic heart disease of native coronary artery without angina pectoris (principal)
CPT/HCPCS: 36415; 80053; 80061; 85025